=== PATIENT | female | born 1990 | race Two or more races ===

== ENCOUNTER 2020-05-27 23:18 | Inpatient (IN) | payer MEDICAID, SELFPAY ==
[2020-05-27 23:30] VITALS: BP 140/88; PULSE 105; RESP 18; TEMP 37.1; O2SAT 99; BMI 22.6
--- NOTE | 2020-05-27 23:51 | ECG_ITS ---
Test Reason : CHEST PAIN Blood Pressure : / mmHG Vent. Rate : 079 BPM Atrial Rate : 079 BPM P-R Int : 128 ms QRS Dur : 082 ms QT Int : 404 ms P-R-T Axes : 038 042 037 degrees QTc Int : 463 ms Sinus rhythm with marked sinus arrhythmia Otherwise normal ECG When compared with ECG of 01-JAN-2019 01:56, Heart rate has decreased Referred By: Louisa Ruiz Electronically Signed By:JONATHAN STANLEY MD
[2020-05-28 00:35] LABS: MANUAL DIFF FLAG NO
[2020-05-28 00:38] LABS: Basophils Absolute Auto 0.1 X10*3/uL (0.0-0.2); Basophils Percent Auto 0.2 % (0-2); Eosinophils Absolute Auto 0.1 X10*3/uL (0.0-0.4); Eosinophils Percent Auto 0.2 % (0-4); Hemoglobin 10.9 g/dl (12.0-16.0); Imm Gran Abs Auto 0.13 X10*3/uL (0.00-0.03); Imm Gran Pct Auto 0.6 % (0.0-0.4); Lymphocytes Absolute Auto 3.1 X10*3/uL (1.2-4.9); Lymphocytes Percent Auto 15.1 % (20-40); Mean Corpuscular Hemoglobin 27.8 pg (27.0-33.0); Mean Corpuscular Volume 84.2 fL (80-98); Mean Platelet Volume 8.8 fL (9.4-12.3); Monocytes Absolute Auto 0.9 X10*3/uL (0.1-1.2); Monocytes Percent Auto 4.5 % (2-11); Neutrophils Absolute Auto 16.1 X10*3/uL (2.0-8.3); Neutrophils Percent Auto 79.4 % (45-73); Platelet Count 483 X10*3/uL (160-400); Red Blood Count 3.92 X10*6/uL (4.20-5.50); Red Cell Distribution Width 14.1 % (11.0-16.0); White Blood Count 20.3 X10*3/uL (4.8-10.8)
[2020-05-28 00:44] LABS: Prothrombin Time 12.4 SEC (10.8-13.0)
[2020-05-28] MEDS: 0.9 % Sodium Chloride 1,000 ML 999 ML IVCONT ×2 (00:46→02:28)
[2020-05-28] MEDS: Famotidine/PF 20 MG/2 ML VIAL IVPUSH (00:47)
[2020-05-28] MEDS: diphenhydrAMINE HCL 50 MG/ML VIAL IVPUSH (00:47)
[2020-05-28] MEDS: Metoclopramide HCl 10 MG/2 ML VIAL IVPUSH (00:47)
--- NOTE | 2020-05-28 01:01 | PC.NURSE ---
heart rate 160, pt is very anxiouse, not sitting well in the bed. ivf infusing all medications given. ekg being done for chest pain during anxiey moment. provider alfie made aware.
[2020-05-28 01:10] LABS: Alanine Aminotransferase 14 U/L (0-31); Alkaline Phosphatase 132 U/L (39-117); Anion Gap 16 (12-20); Aspartate Amino Transferase 19 U/L (5-31); Bilirubin Direct 0.2 mg/dL (0.0-0.5); Bilirubin Total 0.5 mg/dL (0.0-1.0); Blood Urea Nitrogen 8 mg/dL (9-16); Calcium 9.4 mg/dL (8.4-10.2); Carbon Dioxide 21 mmol/L (22-29); Chloride 105 mmol/L (96-108); Creatinine Clr Calc Pharmacy 133.8; Estimated Glomerular Filt Rate > 60; Glucose Random 134 mg/dL (60-115); Lipase 10 U/L (8-78); Magnesium 1.7 mg/dL (1.6-2.6); Potassium 3.4 mmol/l (3.3-5.1); Sodium 139 mmol/L (135-145); Total Protein 7.3 g/dL (6.5-8.0)
[2020-05-28 01:12] LABS: Troponin-I High Sensitivity < 3.5 ng/L (<3.5-17.0)
[2020-05-28 01:29] LABS: Lactic Acid 1.8 mmol/L (0.5-2.0)
[2020-05-28 01:46] VITALS: BP 127/84; PULSE 93; RESP 18; TEMP 36.9; O2SAT 99
--- NOTE | 2020-05-28 01:54 | ED_ITS ---
HPI - Nausea/Vomiting/Diarrhea General Chief complaint: Nausea/Vomiting/Diarrhea Stated complaint: vomiting/19w Time Seen by Provider: 05/27/20 23:51 Source: patient Mode of arrival: ambulatory Limitations: no limitations History of Present Illness HPI Narrative: 30-year-old female approximately 19 weeks presents with intractable nausea, vomiting, and diarrhea. This patient is well-known to this facility and has presented at least once a week since February for similar circumstances. She is very anxious, needs multiple redirection to answer questions, and states that she did use cocaine and marijuana earlier today. History is limited as she is extraordinarily anxious and not answering questions at this time. MD elicited complaint: nausea, vomiting and abdominal pain Pertinent past history: cyclical vomiting Onset (ago): day(s) Description of vomiting: watery and bilious Description of diarrhea: mucus and watery Associated nausea: Yes Associated abdominal pain: Yes Location of pain: diffuse Radiation: diffuse Pain consistency: constant Severity: severe Pain scale (0-10): 10 Relieving factors: none Related Data Allergies Allergy/AdvReac Type Severity Reaction Status Date / Time No Known Allergies Allergy Unknown UNKNOWN Unverified 05/01/20 16:42 [NO KNOWN ALLERGIES] Review of Systems Review of Systems: Constitutional: No Weight loss, No Fever, No Chills, No Night Sweats, No Fatigue, No Malaise ENT/Mouth: No Hearing loss, No Ear Pain, No Nasal Congestion, No Sinus Pain, No Hoarseness, No sore throat, No Rhinorrhea, No Swallowing Difficulty Eyes: No Eye Pain, No Swelling, No Redness, No Foreign Body, No Discharge, No Vision Changes Cardiovascular: No Chest Pain, No SOB, No Dyspnea on Exertion, No Orthopnea, No Edema, No Palpitations Respiratory: No Cough, No Sputum, No Wheezing, No Smoke Exposure, No Dyspnea Gastrointestinal: Positive Nausea, Positive Vomiting, positive Diarrhea, positive abdominal Pain, No Hematochezia, No Melena Genitourinary: positive 19 weeks, no irregular bleeding, No Dysuria, No Urinary Frequency, No Hematuria, No Urinary Incontinence, No Urgency, No Flank Pain, No Urinary Flow Changes, No Hesitancy Musculoskeletal: No joint pain, No Myalgias, No Joint Swelling Skin: No Skin Lesions, No rash Neuro: No Weakness, No Numbness, No Paresthesias, No Loss of Consciousness, No Dizziness, No Headache Psych: Positive anxiety, positive substance abuse cocaine and marijuana, No Depression, No SI/HI/AH/VH Endocrine: No Polyuria, No Polydipsia, No Temperature Intolerance Gastrointestinal: Gastrointestinal: Reports nausea PMFSH Past Medical History Attestation statement: The following information was validated with the patient. Social History Social History Alcohol intake: former Smoking Status: Never smoker Smoked in Last 30 Days: No Use of substances other than those prescribed or required for medical reasons: Yes Substance Use Type: Marijuana Substance Use Frequency: Daily Last Used Substance: Unknown Advance Directives: No Advance Directives Information Provided: No Physical Exam Vital Signs: Vital Signs: Vital Signs Temp Pulse Resp BP Pulse Ox 05/28/20 04:04 98.4 F 75 18 126/80 05/28/20 01:46 98.4 F 93 18 127/84 99 05/27/20 23:30 98.7 F 105 H 18 140/88 H 99 Body Mass Index 22.6 Appearance: Alert. Oriented X3. moderate distress secondary to anxiety suspected to be cocaine withdrawal Eyes: Pupils equal, round and reactive to light. ENT: Pharynx normal. Neck: Normal inspection. Neck supple. CVS: tachycardic at 105, regular rhythm. Pulses normal. Respiratory: No respiratory distress. Breath sounds normal. Abdomen: Soft and nontender. Skin: Skin warm and dry. Normal skin color. Normal skin turgor. Extremities: No lower extremity edema. Neuro: No motor deficit. No sensory deficit. Course Course Course Narrative: patient is 19 weeks , heart tones at bedside 161, plan of care is resuscitate fluids, check lab values, rule out HELLP syndrome. Patient presents on a weekly basis for nausea, vomiting, diarrhea since early February. No indication of help, urinalysis positive for cocaine and marijuana, vital signs have improved after L of fluid 127/8493 heart rate regular rhythm. Patient continues to dry heave, asking for p.o. fluids. Patient was redirected multiple times, advised that she should not have anything to eat or drink at this time because of her dry heaving. Reevaluation(s) Reevaluation #1: Discussion with hospitalist for intractable nausea and vomiting. Plan is for admission for hyperemesis gravidarum. Time: 02:26 Consultations Consultation #1: Sandip Time: : Consultation #2: Geri Time: : MDM - Nausea/Vomiting/Diarrhea MDM Narrative Medical decision making narrative: Hyperemesis gravidarum, HELLP syndrome, cocaine withdrawal, gastroenteritis, infection, UTI Medical Records Attestation: I reviewed the patient's medical records. Lab Data Attestation: I reviewed the patient's lab results. Result diagrams: 05/28/20 00:30 05/28/20 00:30 Labs: Lab Results 05/28/20 05/28/20 05/28/20 Range/Units 00:30 00:30 00:30 WBC 20.3 H (4.8-10.8) X10*3/uL RBC 3.92 L (4.20-5.50) X10*6/uL Hgb 10.9 L (12.0-16.0) g/dl Hct 33.0 L (37-47) % MCV 84.2 (80-98) fL MCH 27.8 (27.0-33.0) pg MCHC 33.0 (31.0-35.0) g/dl RDW 14.1 (11.0-16.0) % Plt Count 483 H (160-400) X10*3/uL MPV 8.8 L (9.4-12.3) fL Immature Gran % (Auto) 0.6 H (0.0-0.4) % Neut % (Auto) 79.4 H (45-73) % Lymph % (Auto) 15.1 L (20-40) % Graves % (Auto) 4.5 (2-11) % Eos % (Auto) 0.2 (0-4) % Baso % (Auto) 0.2 (0-2) % Lymph # (Auto) 3.1 (1.2-4.9) X10*3/uL Graves # (Auto) 0.9 (0.1-1.2) X10*3/uL Eos # (Auto) 0.1 (0.0-0.4) X10*3/uL Baso # (Auto) 0.1 (0.0-0.2) X10*3/uL Abs Immat Gran (auto) 0.13 H (0.00-0.03) X10*3/uL Absolute Neuts (auto) 16.1 H (2.0-8.3) X10*3/uL Absolute Nucleated RBC 0.000 (0.0-0.012) X10*3/uL Nucleated RBC % (auto) 0.0 (0.0-0.2) /100WBC PT 12.4 (10.8-13.0) SEC INR 1.0 (0.9-1.1) Sodium 139 (135-145) mmol/L Potassium 3.4 (3.3-5.1) mmol/l Chloride 105 (96-108) mmol/L Carbon Dioxide 21 L (22-29) mmol/L Anion Gap 16 (12-20) BUN 8 L (9-16) mg/dL Creatinine 0.62 (0.5-1.4) mg/dL Estim Creat Clear Calc 133.8 Estimated GFR > 60 Random Glucose 134 H (60-115) mg/dL Lactic Acid (0.5-2.0) mmol/L Calcium 9.4 (8.4-10.2) mg/dL Magnesium 1.7 (1.6-2.6) mg/dL Total Bilirubin 0.5 (0.0-1.0) mg/dL Direct Bilirubin 0.2 (0.0-0.5) mg/dL AST 19 (5-31) U/L ALT 14 (0-31) U/L Alkaline Phosphatase 132 H (39-117) U/L Troponin I High Sens (<3.5-17.0) ng/L Total Protein 7.3 (6.5-8.0) g/dL Albumin 4.0 (3.5-5.0) g/dL Lipase 10 (8-78) U/L Urine Color Urine Appearance Urine pH (5.0-8.0) Ur Specific [place] (1.005-1.025) Urine Protein (NEG-TRACE) MG/DL Urine Glucose (UA) (NEG) MG/DL Urine Ketones (NEG) MG/DL Urine Blood (NEG) Urine Nitrite (NEG) Ur Leukocyte Esterase (NEG) Urine RBC (0) /HPF Urine WBC (0-4) /HPF Ur Squamous Epith Cells /LPF Urine Bacteria /LPF Urine Opiates Screen (Not Detect) Ur Barbiturates Screen (Not Detect) Ur Phencyclidine Scrn (Not Detect) Ur Amphetamines Screen (Not Detect) U Benzodiazepines Scrn (Not Detect) Urine Cocaine Screen (Not Detect) U Marijuana (THC) Screen (Not Detect) 05/28/20 05/28/20 05/28/20 Range/Units 00:30 00:30 02:21 WBC (4.8-10.8) X10*3/uL RBC (4.20-5.50) X10*6/uL Hgb (12.0-16.0) g/dl Hct (37-47) % MCV (80-98) fL MCH (27.0-33.0) pg MCHC (31.0-35.0) g/dl RDW (11.0-16.0) % Plt Count (160-400) X10*3/uL MPV (9.4-12.3) fL Immature Gran % (Auto) (0.0-0.4) % Neut % (Auto) (45-73) % Lymph % (Auto) (20-40) % Graves % (Auto) (2-11) % Eos % (Auto) (0-4) % Baso % (Auto) (0-2) % Lymph # (Auto) (1.2-4.9) X10*3/uL Graves # (Auto) (0.1-1.2) X10*3/uL Eos # (Auto) (0.0-0.4) X10*3/uL Baso # (Auto) (0.0-0.2) X10*3/uL Abs Immat Gran (auto) (0.00-0.03) X10*3/uL Absolute Neuts (auto) (2.0-8.3) X10*3/uL Absolute Nucleated RBC (0.0-0.012) X10*3/uL Nucleated RBC % (auto) (0.0-0.2) /100WBC PT (10.8-13.0) SEC INR (0.9-1.1) Sodium (135-145) mmol/L Potassium (3.3-5.1) mmol/l Chloride (96-108) mmol/L Carbon Dioxide (22-29) mmol/L Anion Gap (12-20) BUN (9-16) mg/dL Creatinine (0.5-1.4) mg/dL Estim Creat Clear Calc Estimated GFR Random Glucose (60-115) mg/dL Lactic Acid 1.8 (0.5-2.0) mmol/L Calcium (8.4-10.2) mg/dL Magnesium (1.6-2.6) mg/dL Total Bilirubin (0.0-1.0) mg/dL Direct Bilirubin (0.0-0.5) mg/dL AST (5-31) U/L ALT (0-31) U/L Alkaline Phosphatase (39-117) U/L Troponin I High Sens < 3.5 (<3.5-17.0) ng/L Total Protein (6.5-8.0) g/dL Albumin (3.5-5.0) g/dL Lipase (8-78) U/L Urine Color Urine Appearance Urine pH (5.0-8.0) Ur Specific [place] (1.005-1.025) Urine Protein (NEG-TRACE) MG/DL Urine Glucose (UA) (NEG) MG/DL Urine Ketones (NEG) MG/DL Urine Blood (NEG) Urine Nitrite (NEG) Ur Leukocyte Esterase (NEG) Urine RBC (0) /HPF Urine WBC (0-4) /HPF Ur Squamous Epith Cells /LPF Urine Bacteria /LPF Urine Opiates Screen Not Detected (Not Detect) Ur Barbiturates Screen Not Detected (Not Detect) Ur Phencyclidine Scrn Not Detected (Not Detect) Ur Amphetamines Screen Not Detected (Not Detect) U Benzodiazepines Scrn Not Detected (Not Detect) Urine Cocaine Screen POSITIVE H (Not Detect) U Marijuana (THC) Screen POSITIVE H (Not Detect) 05/28/20 Range/Units 02:21 WBC (4.8-10.8) X10*3/uL RBC (4.20-5.50) X10*6/uL Hgb (12.0-16.0) g/dl Hct (37-47) % MCV (80-98) fL MCH (27.0-33.0) pg MCHC (31.0-35.0) g/dl RDW (11.0-16.0) % Plt Count (160-400) X10*3/uL MPV (9.4-12.3) fL Immature Gran % (Auto) (0.0-0.4) % Neut % (Auto) (45-73) % Lymph % (Auto) (20-40) % Graves % (Auto) (2-11) % Eos % (Auto) (0-4) % Baso % (Auto) (0-2) % Lymph # (Auto) (1.2-4.9) X10*3/uL [place] # (Auto) (0.1-1.2) X10*3/uL Eos # (Auto) (0.0-0.4) X10*3/uL Baso # (Auto) (0.0-0.2) X10*3/uL Abs Immat Gran (auto) (0.00-0.03) X10*3/uL Absolute Neuts (auto) (2.0-8.3) X10*3/uL Absolute Nucleated RBC (0.0-0.012) X10*3/uL Nucleated RBC % (auto) (0.0-0.2) /100WBC PT (10.8-13.0) SEC INR (0.9-1.1) Sodium (135-145) mmol/L Potassium (3.3-5.1) mmol/l Chloride (96-108) mmol/L Carbon Dioxide (22-29) mmol/L Anion Gap (12-20) BUN (9-16) mg/dL Creatinine (0.5-1.4) mg/dL Estim Creat Clear Calc Estimated GFR Random Glucose (60-115) mg/dL Lactic Acid (0.5-2.0) mmol/L Calcium (8.4-10.2) mg/dL Magnesium (1.6-2.6) mg/dL Total Bilirubin (0.0-1.0) mg/dL Direct Bilirubin (0.0-0.5) mg/dL AST (5-31) U/L ALT (0-31) U/L Alkaline Phosphatase (39-117) U/L Troponin I High Sens (<3.5-17.0) ng/L Total Protein (6.5-8.0) g/dL Albumin (3.5-5.0) g/dL Lipase (8-78) U/L Urine Color DARK YELLOW Urine Appearance HAZY Urine pH 6.5 (5.0-8.0) Ur Specific [place] >= 1.030 H (1.005-1.025) Urine Protein 2+ H (NEG-TRACE) MG/DL Urine Glucose (UA) NEG (NEG) MG/DL Urine Ketones 40 (NEG) MG/DL Urine Blood 3+ H (NEG) Urine Nitrite NEG (NEG) Ur Leukocyte Esterase NEG (NEG) Urine RBC 15-29 H (0) /HPF Urine WBC 0-2 (0-4) /HPF Ur Squamous Epith Cells 3+ /LPF Urine Bacteria 1+ /LPF Urine Opiates Screen (Not Detect) Ur Barbiturates Screen (Not Detect) Ur Phencyclidine Scrn (Not Detect) Ur Amphetamines Screen (Not Detect) U Benzodiazepines Scrn (Not Detect) Urine Cocaine Screen (Not Detect) U Marijuana (THC) Screen (Not Detect) ECG Data Attestation: I personally reviewed and interpreted this ECG as follows: ECG interpretation date: 05/28/20 ECG interpretation time: 00:50 Interpretation: Vent. Rate : 079 BPM Atrial Rate : 079 BPM P-R Int : 128 ms QRS Dur : 082 ms QT Int : 404 ms P-R-T Axes : 038 042 037 degrees QTc Int : 463 ms Sinus rhythm with marked sinus arrhythmia Otherwise normal ECG When compared with ECG of 01-JAN-2019 01:56, No significant change was found Discharge Plan Discharge Clinical Impression: Hyperemesis gravidarum Patient Disposition: Admitted As Inpatient
[2020-05-28 02:00] VITALS: BP 127/84
[2020-05-28 02:29] LABS: Glucose Urine UA NEG (NEG); Leukocyte Esterase Urine NEG (NEG); Nitrite Urine NEG (NEG); PH 6.5 (5.0-8.0); Specific Gravity - Urine >= 1.030 (1.005-1.025); Urine Blood 3+ (NEG); Urine Ketones 40 MG/DL (NEG); Urine Protein 2+ MG/DL (NEG-TRACE)
--- NOTE | 2020-05-28 02:29 | PC.NURSE ---
PT AMBULATED BACK FROM BATHROOM. URINE DARK YELLOW. PT HAD STEADY GAIT. PT IS BEING SEEN AT THE BEDSIDE BY HOSPITALIST AND PROVIDER. PT DISCLOSED TO THIS RN THAT SHE SMOKES TOAN AND HAS BEEN CUTTING BACK. PT IS RESTLESS MOANING FOR WATER, TEACHING ON THE NEED TO BE NPO AT THIS TIME BY HOSPITALIST AND PROVIDER EXPLAINED TO THE PT WELL THIS RN. PT HAS STOPPED HER ACTIONS AND IS HAVING ICE CHIPS AT THE PROVIDERS OK.
[2020-05-28 02:30] LABS: Appearance Urine HAZY; Color Urine DARK YELLOW
[2020-05-28 02:41] LABS: WBC Urine 0-2 /HPF (0-4)
[2020-05-28 02:42] LABS: Bacteria Urine 1+ /LPF; Squamous Epithelial Cell Urine 3+ /LPF
[2020-05-28 03:05] LABS: Amphetamine Screen Urine Not Detected (Not Detect); Barbiturates, Urine Not Detected (Not Detect); Benzodiazepines Screen Urine Not Detected (Not Detect); Cannabinoid Screen Urine POSITIVE (Not Detect); Cocaine Screen Urine POSITIVE (Not Detect); Opiate Screen Urine Not Detected (Not Detect); Phencyclidine Screen Urine Not Detected (Not Detect)
[2020-05-28 04:00] VITALS: BP 126/80; PULSE 78; RESP 18; TEMP 36.9; O2SAT 99
[2020-05-28 04:04] VITALS: BP 126/80; PULSE 75; RESP 18; TEMP 36.9
--- NOTE | 2020-05-28 04:09 | PC.NURSE ---
PT WAS SLEEPING ON HER ABD INCONT OF URINE. PT IVF COMPLETED AND PT IS NOW BACK TO BED. PT REQUESTING WARM BLANKETS NO FEVER. PT HAS VOMITING DUE TO TOAN SMOKER.
--- NOTE | 2020-05-28 04:16 | PC.NURSE ---
pt oob to bathroom with steady gait. pt iv was removed with turning. new 20 right hand placed at pt request for the hand location.
[2020-05-28 04:31] VITALS: BP 112/56; PULSE 94; RESP 18
--- NOTE | 2020-05-28 05:06 | PC.NURSE ---
report given to Leilani cm. all the orders have not crossed over to the med surg floor. pt being held in the ed at this time. pt is getting oob and asking for food and drink. no diet order as of yet and pt was npo by provider. pt states she can feel the baby moving. pt tested positive for nhan and cocaine. pt has been asking to take a shower, warm blankets. pt states she take multiple showers a day due to nhan user.
[2020-05-28] MEDS: ondansetron HCL 4 MG/2 ML VIAL IVPUSH (06:28)
[2020-05-28] MEDS: Lactated Ringers 1,000 ML 125 ML IVCONT (06:29)
--- NOTE | 2020-05-28 08:07 | P.HPIM_ITS ---
History of Present Illness Date of Service: 05/28/20 Chief Complaint: Intractable N/V This is a 29-year-old female with w hx of cyclic vomiting syndrome who presents to the hospital with complaints of intractable nausea vomiting.She is 19 wks . she has hx of hyperemesis gravidum in her previous pregnancies and had to terminate a due to the severity in the past. Patient was recently discharged from this hospital on 05/02 . Patient reports on discharge she was feeling better but her symptoms reoccurred on tuesday . She has multiple episodes of vomiting nonbloody. Has some chills with no fever, no headache, no change in vision, no flank pain, reports no urinary frequency and no lower extr emity edema. Reports improvement of her n/v on hot showers 10 point review of system otherwise negative On arrival to the ED patient hemodynamically stable with no significant abnormal vitals tep of 98.7, HR of 93, RR of 18, BP of 126/84 and 99% on RA Labs significant for WBC count of 20.3 and UA positive for blood with no evidence of infection UDS positive for Cocaine and marijuana Past medical history: Denies Surgical history: Family history: No significant history Social history: Comes from home, smokes marijuana daily and still does, denies any drugs, denies alcohol Review of Systems Review of Systems: Yes all other systems are reviewed and are negative [facility] Social History Household Members: Other Housing: Other Alcohol intake: former Smoking Status: Unknown if ever smoked Smoked in Last 30 Days: No Use of substances other than those prescribed or required for medical reasons: Refusing to respond Substance Use Type: Marijuana Substance Use Frequency: Daily Last Used Substance: Unknown Advance Directives: No Advance Directives Information Provided: No Do you have thoughts of harming others: None Do you have a plan to hurt others: No Plan Recently lost weight without trying: No Meds Allergies Allergy/AdvReac Type Severity Reaction Status Date / Time No Known Allergies Allergy Unknown UNKNOWN Unverified 05/01/20 16:42 [NO KNOWN ALLERGIES] Physical Exam Vital Signs and Narrative: Vital Signs: Last Vital Signs Temp 98.4 F 05/28/20 04:04 Pulse 94 05/28/20 04:31 Resp 18 05/28/20 04:31 BP 112/56 L 05/28/20 04:31 Pulse Ox 99 05/28/20 04:00 Body Mass Index 22.6 Const: General: cooperative and no acute distress Orientation/consciousness: patient oriented x3 Eyes: General: appearance normal, both eyes and all related structures Pupils: Equal, round and reactive pupils present Resp: Effort & Inspection: normal respiratory effort and able to speak in complete sentences Auscultation: clear to auscultation bilaterally Cardio: Rate: regular rate Rhythm: regular rhythm GI: Palpation (GI): Soft to palpation Auscultation: normal bowel sounds Skin: General skin exam: no rashes or lesions noted Neuro: General: patient oriented x3 Cranial nerves: Yes Equal, round and reactive pupils present Cognition (Neuro): normal cognition Extrem: General: Yes normal to inspection and Yes no pedal edema Results Labs Labs: Laboratory Tests 05/28/20 05/28/20 05/28/20 00:30 00:30 00:30 WBC 20.3 H RBC 3.92 L Hgb 10.9 L Hct 33.0 L MCV 84.2 MCH 27.8 MCHC 33.0 RDW 14.1 Plt Count 483 H MPV 8.8 L Immature Gran % (Auto) 0.6 H Neut % (Auto) 79.4 H Lymph % (Auto) 15.1 L [place] % (Auto) 4.5 Eos % (Auto) 0.2 Baso % (Auto) 0.2 Lymph # (Auto) 3.1 [place] # (Auto) 0.9 Eos # (Auto) 0.1 Baso # (Auto) 0.1 Abs Immat Gran (auto) 0.13 H Absolute Neuts (auto) 16.1 H Absolute Nucleated RBC 0.000 Nucleated RBC % (auto) 0.0 PT 12.4 INR 1.0 Sodium 139 Potassium 3.4 Chloride 105 Carbon Dioxide 21 L Anion Gap 16 BUN 8 L Creatinine 0.62 Estim Creat Clear Calc 133.8 Estimated GFR > 60 Random Glucose 134 H Lactic Acid Calcium 9.4 Magnesium 1.7 Total Bilirubin 0.5 Direct Bilirubin 0.2 AST 19 ALT 14 Alkaline Phosphatase 132 H Troponin I High Sens Total Protein 7.3 Albumin 4.0 Lipase 10 Urine Color Urine Appearance Urine pH Ur Specific [place] Urine Protein Urine Glucose (UA) Urine Ketones Urine Blood Urine Nitrite Ur Leukocyte Esterase Urine RBC Urine WBC Ur Squamous Epith Cells Urine Bacteria Urine Opiates Screen Ur Barbiturates Screen Ur Phencyclidine Scrn Ur Amphetamines Screen U Benzodiazepines Scrn Urine Cocaine Screen U Marijuana (THC) Screen 05/28/20 05/28/20 05/28/20 00:30 00:30 02:21 WBC RBC Hgb Hct MCV MCH MCHC RDW Plt Count MPV Immature Gran % (Auto) Neut % (Auto) Lymph % (Auto) [place] % (Auto) Eos % (Auto) Baso % (Auto) Lymph # (Auto) [place] # (Auto) Eos # (Auto) Baso # (Auto) Abs Immat Gran (auto) Absolute Neuts (auto) Absolute Nucleated RBC Nucleated RBC % (auto) PT INR Sodium Potassium Chloride Carbon Dioxide Anion Gap BUN Creatinine Estim Creat Clear Calc Estimated GFR Random Glucose Lactic Acid 1.8 Calcium Magnesium Total Bilirubin Direct Bilirubin AST ALT Alkaline Phosphatase Troponin I High Sens < 3.5 Total Protein Albumin Lipase Urine Color Urine Appearance Urine pH Ur Specific [place] Urine Protein Urine Glucose (UA) Urine Ketones Urine Blood Urine Nitrite Ur Leukocyte Esterase Urine RBC Urine WBC Ur Squamous Epith Cells Urine Bacteria Urine Opiates Screen Not Detected Ur Barbiturates Screen Not Detected Ur Phencyclidine Scrn Not Detected Ur Amphetamines Screen Not Detected U Benzodiazepines Scrn Not Detected Urine Cocaine Screen POSITIVE H U Marijuana (THC) Screen POSITIVE H 05/28/20 02:21 WBC RBC Hgb Hct MCV MCH MCHC RDW Plt Count MPV Immature Gran % (Auto) Neut % (Auto) Lymph % (Auto) [place] % (Auto) Eos % (Auto) Baso % (Auto) Lymph # (Auto) [place] # (Auto) Eos # (Auto) Baso # (Auto) Abs Immat Gran (auto) Absolute Neuts (auto) Absolute Nucleated RBC Nucleated RBC % (auto) PT INR Sodium Potassium Chloride Carbon Dioxide Anion Gap BUN Creatinine Estim Creat Clear Calc Estimated GFR Random Glucose Lactic Acid Calcium Magnesium Total Bilirubin Direct Bilirubin AST ALT Alkaline Phosphatase Troponin I High Sens Total Protein Albumin Lipase Urine Color DARK YELLOW Urine Appearance HAZY Urine pH 6.5 Ur Specific [place] >= 1.030 H Urine Protein 2+ H Urine Glucose (UA) NEG Urine Ketones 40 Urine Blood 3+ H Urine Nitrite NEG Ur Leukocyte Esterase NEG Urine RBC 15-29 H Urine WBC 0-2 Ur Squamous Epith Cells 3+ Urine Bacteria 1+ Urine Opiates Screen Ur Barbiturates Screen Ur Phencyclidine Scrn Ur Amphetamines Screen U Benzodiazepines Scrn Urine Cocaine Screen U Marijuana (THC) Screen Assessment and Plan (1) Cyclic vomiting syndrome: Status: Acute (2) : Status: Acute (3) Hyperemesis gravidarum: Status: Acute 30 yo f 19 wk who presents with intractable N?V # Intractable n/v - most likley multifactorial due to marijuana use as well as hyperemesis gravidum Plan: - zofran, compazine prn - lauren fluis # - Ob?[employer] SCIENT[employer]EARCH informed of pt by ED but will hold off on consulting them for now as pt does not appea to have any complications DVT ppx : heparin DOS: 05/28/2020
[2020-05-28] MEDS: Metoclopramide HCl 10 MG/2 ML VIAL 5 MG IVPUSH (10:45)
--- NOTE | 2020-05-28 11:30 | MHC.CM.PN ---
Addendum entered by Zakia Proctor 05/28/20 11:33: PATIENT HAS OPEN DCF CASE. NARCOTICS AGENT FOR DCF IS SHER ALTAMIRANO MANAGER CONTENT IS NOBLE WAGNER. [facility] IS AWARE THAT PLAN IS FOR PATIENT TO RETURN HOME THIS AFTERNOON. [facility] WILL CONTACT NARCOTICS AGENT TO DO A WELLNESS CHECK ON CHILDREN. PER DCF REPORTS, PATIENT LIVES WITH HER MOTHER AND HAS 4 CHILDREN IN THE HOME (AGES 8, 11, 15, AND 17). Original Note: THIS TAPPET ADJUSTER CONTACTED ROSA HALL ([facility] [phone])
--- NOTE | 2020-05-28 11:47 | P.DS_ITS ---
DS: Providers Provider Date of admission: 05/28/20 04:00 Primary care physician: [facility] DS: Diagnosis Discharge Diagnosis (1) Cyclic vomiting syndrome: Status: Acute (2) : Status: Acute (3) Hyperemesis gravidarum: Status: Acute DS: Summary Hospital Course Hospital Course: Patient was admitted earlier today with hyperemesis likely related to canabis use and possibly related, unfortunately not her first episode and continues to be doing this. She was observed, hydrated and given antiemetic and now feels better and wants to go and sign out against advise. Risk benefit and risks of getting worse and endangering , and even explained. She is of clear mind, alert oriented to self place and time and voice understanding and still leaving AMA. I have advised her to avoid substance use and to follow up with her vending machine servicer for proper care Time Spent with Patient Time attestation: Total time spent providing and/or coordinating discharge services: Physical Exam Vital Signs: Vital Signs: Vital Signs Temp Pulse Resp BP Pulse Ox 05/28/20 04:31 94 18 112/56 L 05/28/20 04:04 98.4 F 75 18 126/80 05/28/20 04:00 98.4 F 78 18 126/80 99 05/28/20 02:00 127/84 05/28/20 01:46 98.4 F 93 18 127/84 99 05/27/20 23:30 98.7 F 105 H 18 140/88 H 99 Body Mass Index 22.6 Constitutional Awake and Alert, No apparent distress Neck Supple, No lymphadenopathy Cardiovascular RRR, No M/R/G, S1 S2, No S3 S4, No pedal edema Respiratory Lungs clear, No respiratory distress Gastrointestinal Non tender, Non-distended Skin No rash Neurological Alert & oriented x3 Psychological Appropriate affect DS: Data Data Completed and Pending Labs on day of discharge: Labs from last 24 hours 05/28/20 05/28/20 05/28/20 02:21 02:21 00:30 WBC RBC Hgb Hct MCV MCH MCHC RDW Plt Count MPV Immature Gran % (Auto) Neut % (Auto) Lymph % (Auto) [place] % (Auto) Eos % (Auto) Baso % (Auto) Lymph # (Auto) [place] # (Auto) Eos # (Auto) Baso # (Auto) Abs Immat Gran (auto) Absolute Neuts (auto) Absolute Nucleated RBC Nucleated RBC % (auto) PT INR Sodium Potassium Chloride Carbon Dioxide Anion Gap BUN Creatinine Estim Creat Clear Calc Estimated GFR Random Glucose Lactic Acid Calcium Magnesium Total Bilirubin Direct Bilirubin AST ALT Alkaline Phosphatase Troponin I High Sens < 3.5 Total Protein Albumin Lipase Urine Color DARK YELLOW Urine Appearance HAZY Urine pH 6.5 Ur Specific [place] >= 1.030 H Urine Protein 2+ H Urine Glucose (UA) NEG Urine Ketones 40 Urine Blood 3+ H Urine Nitrite NEG Ur Leukocyte Esterase NEG Urine RBC 15-29 H Urine WBC 0-2 Ur Squamous Epith Cells 3+ Urine Bacteria 1+ Urine Opiates Screen Not Detected Ur Barbiturates Screen Not Detected Ur Phencyclidine Scrn Not Detected Ur Amphetamines Screen Not Detected U Benzodiazepines Scrn Not Detected Urine Cocaine Screen POSITIVE H U Marijuana (THC) Screen POSITIVE H 05/28/20 05/28/20 05/28/20 00:30 00:30 00:30 WBC RBC Hgb Hct MCV MCH MCHC RDW Plt Count MPV Immature Gran % (Auto) Neut % (Auto) Lymph % (Auto) [place] % (Auto) Eos % (Auto) Baso % (Auto) Lymph # (Auto) [place] # (Auto) Eos # (Auto) Baso # (Auto) Abs Immat Gran (auto) Absolute Neuts (auto) Absolute Nucleated RBC Nucleated RBC % (auto) PT 12.4 INR 1.0 Sodium 139 Potassium 3.4 Chloride 105 Carbon Dioxide 21 L Anion Gap 16 BUN 8 L Creatinine 0.62 Estim Creat Clear Calc 133.8 Estimated GFR > 60 Random Glucose 134 H Lactic Acid 1.8 Calcium 9.4 Magnesium 1.7 Total Bilirubin 0.5 Direct Bilirubin 0.2 AST 19 ALT 14 Alkaline Phosphatase 132 H Troponin I High Sens Total Protein 7.3 Albumin 4.0 Lipase 10 Urine Color Urine Appearance Urine pH Ur Specific [place] Urine Protein Urine Glucose (UA) Urine Ketones Urine Blood Urine Nitrite Ur Leukocyte Esterase Urine RBC Urine WBC Ur Squamous Epith Cells Urine Bacteria Urine Opiates Screen Ur Barbiturates Screen Ur Phencyclidine Scrn Ur Amphetamines Screen U Benzodiazepines Scrn Urine Cocaine Screen U Marijuana (THC) Screen 05/28/20 00:30 WBC 20.3 H RBC 3.92 L Hgb 10.9 L Hct 33.0 L MCV 84.2 MCH 27.8 MCHC 33.0 RDW 14.1 Plt Count 483 H MPV 8.8 L Immature Gran % (Auto) 0.6 H Neut % (Auto) 79.4 H Lymph % (Auto) 15.1 L [place] % (Auto) 4.5 Eos % (Auto) 0.2 Baso % (Auto) 0.2 Lymph # (Auto) 3.1 [place] # (Auto) 0.9 Eos # (Auto) 0.1 Baso # (Auto) 0.1 Abs Immat Gran (auto) 0.13 H Absolute Neuts (auto) 16.1 H Absolute Nucleated RBC 0.000 Nucleated RBC % (auto) 0.0 PT INR Sodium Potassium Chloride Carbon Dioxide Anion Gap BUN Creatinine Estim Creat Clear Calc Estimated GFR Random Glucose Lactic Acid Calcium Magnesium Total Bilirubin Direct Bilirubin AST ALT Alkaline Phosphatase Troponin I High Sens Total Protein Albumin Lipase Urine Color Urine Appearance Urine pH Ur Specific [place] Urine Protein Urine Glucose (UA) Urine Ketones Urine Blood Urine Nitrite Ur Leukocyte Esterase Urine RBC Urine WBC Ur Squamous Epith Cells Urine Bacteria Urine Opiates Screen Ur Barbiturates Screen Ur Phencyclidine Scrn Ur Amphetamines Screen U Benzodiazepines Scrn Urine Cocaine Screen U Marijuana (THC) Screen Discharge Plan Discharge Patient Disposition: Left Against Medical Advice Referrals: [facility] [Primary Care Provider] - Discharge Orders: Discharge Order (Routine); Ordered 05/28/20 Ordered By: Juan David Logan Diet: advance to your usual diet Activity on Discharge: As tolerated Care Plan Goals: See apropriate pre care Health Concerns: substance abuse, cyclical vomitting Plan of Treatment: Avoid substance, follow up with your PRODUCT GRADER for apprirate pre jewels care
--- NOTE | 2020-05-28 11:48 | MHC.CM.PN ---
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[employer] RECORD REVIEWED ALONG WITH CASE DISCUSSED WITH STAFF NURSE AND CO-WORKER -INCIDENT RESPONSE SPECIALIST MET WITH PATIENT SHE REPORTED TO THIS BICYCLE I ASSEMBLER THAT SHE LIVES ALONE AND HER CHILDREN LIVE ELSEWHERE I ASKED HER IF AFTEDR THE LAST ADMISSION SHE HAD HERE DID SHE DFOLLOW UP WITH HER OB AT [facility] SHE REPORTED SHE DID AND THAT SHE HAD A ULTRA SOUND LAST WEEK AND SHE IS HAVING A LITTLE GIRL , SHE [id number] THAT SHE HAS NO SERVCIES IN THE HOME SHE ADMITTS TO TAKING MAIJUANA AND STRONGLY DENIES TAKING ANY COCAINE (WHICH BOTH SHOWED UPO ON DRUG TEST WITH THIS ADMISSION) SHE STARTED TO HAVE WHAT APPEQRED TO BE A ANXIETY ATTACK AND SHE REPORTED THAT SHE WAS HAVBING ONE AND BEGGED ME TO STAY WITHHER , SHECALLED HER MOM AND REQUESTED SHE COME AND SEE HERE , AFTER THE CONVERSATION WITH HER MOTHER SHE SEMMED TO HAVE CALMED DOWN. SPOKE MORE WITH BURGLARY INVESTIGATOR , SHE CHECKED WITH PROTECTIVE SERVICES AND REPORTED THAT BILLY HAS A OPEN DSS CASE DISCHARGE PLAN HOME WITH NO SERVICES PATIENT INSTRUXTED TO CALL PCP AND OB FOR FOLLOW UP APPOINTMENT PATIENT IS ANTICIPATED TO BE D/C ;LATTER TODAY OPEN PROTECTIVE CASE WITH DDS FOR CASE MANGEMENT S,W, NOTE PLEASE SEE NOTES FOR CONFIRMATION OF PHONE CALL TO PROTECTIVE SERVCIES
--- NOTE | 2020-05-28 12:13 | PC.NURSE ---
patient states that she feels better and intends to leave. dr novak. patient states that her ride is here now. risks of leaving were reviewed and patient states she understands those risks. she leaves with family
--- NOTE | 2020-05-28 12:57 | MHC.CM.PN ---
nurse egg caser note informed by staff nurse that patient left against medical advice4
== END 2020-05-28 12:55 | disposition left against medical advice (07) | DRG 566 ==
LOC: HO.ED 05-28 03:58 → HO.S3 05-28 04:38
PROVIDERS: Nurse Practitioner Family; Admitting Provider Internal Medicine; Emergency Provider Internal Medicine; Visit Provider Internal Medicine
DX: O21.0 Mild hyperemesis gravidarum (principal); O99.322 Drug use complicating pregnancy, second trimester; F14.90 Cocaine use, unspecified, uncomplicated; F12.90 Cannabis use, unspecified, uncomplicated; Z3A.19 19 weeks gestation of pregnancy
CPT/HCPCS: 36415; 80048; 80076; 80307; 81001; 83605; 83690; 83735; 84484; 85025; 85610; 87040; 93005; 96361; 96374; 96375; 99218; 99285; J1200; J2405; J2765

== ENCOUNTER 2020-07-09 11:00 | Emergency (ER) | payer MEDICAID, SELFPAY ==
[2020-07-09 11:07] VITALS: PULSE 120
[2020-07-09 11:08] VITALS: BP 130/72; BP 132/86; PULSE 118; PULSE 120; RESP 18; TEMP 36.7; O2SAT 98; O2SAT 99; BMI 37.7
[2020-07-09] MEDS: ondansetron HCL 4 MG/2 ML VIAL IVPUSH (11:21)
[2020-07-09] MEDS: LORazepam 2 MG/ML VIAL 1 MG IVPUSH (11:21)
[2020-07-09] MEDS: 0.9 % Sodium Chloride 1,000 ML 999 ML IVCONT ×2 (11:22→13:38)
--- NOTE | 2020-07-09 11:34 | ED_ITS ---
HPI - Nausea/Vomiting/Diarrhea General Chief complaint: Abdominal Pain Stated complaint: 6 mos preg, abd pain Time Seen by Provider: 07/09/20 11:06 Source: patient Mode of arrival: EMS Limitations: no limitations History of Present Illness HPI Narrative: patient is 6 months uses cocaine and marijuana comes here with increased anxiety and upper abdominal pain with vomiting since 04:00 no vaginal bleeding or discharge patient very anxious in the ER crying. Patient a chronic leukocytosis had a ultrasound done in 04/03 negative for gallstones asking for medication for anxiety MD elicited complaint: nausea, vomiting and abdominal pain Related Data Previous Rx's Medication Instructions Recorded hydroxyzine HCl 25 mg PO Q6-8H PRN #14 tab 07/09/20 Allergies Allergy/AdvReac Type Severity Reaction Status Date / Time No Known Allergies Allergy Unknown UNKNOWN Unverified 05/01/20 16:42 [NO KNOWN ALLERGIES] Review of Systems Review of Systems: REVIEW OF SYSTEMS: Pertinent positives and negatives are stated above in the history. GEN: no fevers, chills, fatigue HEENT: no nasal congestion, sore throat, ear pain NEURO: no headache, dizziness, focal weakness PULM: no cough, shortness of breath CV: no chest pain, palpitations, LE edema ABD: no diarrhea : no dysuria, urgency, frequency SKIN: no rash ROS otherwise negative x 10 PMFSH Social History Social History Household Members: Other Housing: Other Alcohol intake: never Smoking Status: Never smoker Use of substances other than those prescribed or required for medical reasons: Yes Substance Use Type: Marijuana Advance Directives: No Advance Directives Information Provided: Yes service: No Current occupational status: unemployed Physical Exam Vital Signs: Vital Signs: Last Vital Signs Temp 98.0 F 07/09/20 11:08 Pulse 98 07/09/20 14:00 Resp 18 07/09/20 14:00 BP 165/88 H 07/09/20 14:00 Pulse Ox 99 07/09/20 14:00 Body Mass Index 37.7 Appearance: Alert. Oriented X3. anxious vomiting Eyes: Pupils equal, round and reactive to light. ENT: Pharynx normal. oral mucosa moist Neck: Normal inspection. Neck supple. CVS: Normal heart rate and rhythm. Pulses normal. Respiratory: No respiratory distress. Breath sounds normal. Abdomen: Soft and gravid uterus mild tenderness and epigastric area no rebound tenderness no guarding bowel sounds are present no CVA tenderness Skin: Skin warm and dry. Normal skin color. Normal skin turgor. Extremities: No lower extremity edema. Good range of movement Neuro: Oriented X 3. No motor deficit. No sensory deficit. MDM - Nausea/Vomiting/Diarrhea MDM Narrative Medical decision making narrative: patient with history of substance abuse with recurrent vomiting 6 months been to the hospital several times for that is related problems at previous ultrasound negative patient received 2 L of IV fluids started feeling better but asking for more medication and walked out from the ER Medical Records Attestation: I reviewed the patient's medical records. Lab Data Attestation: I reviewed the patient's lab results. Result diagrams: 07/09/20 11:07/09/20 11: Labs: Lab Results 07/09/20 07/09/20 07/09/20 Range/Units 11:28 11:28 11:28 WBC 21.4 H (4.8-10.8) X10*3/uL RBC 3.78 L (4.20-5.50) X10*6/uL Hgb 10.5 L (12.0-16.0) g/dl Hct 31.3 L (37-47) % MCV 82.8 (80-98) fL MCH 27.8 (27.0-33.0) pg MCHC 33.5 (31.0-35.0) g/dl RDW 13.2 (11.0-16.0) % Plt Count 471 H (160-400) X10*3/uL MPV 8.6 L (9.4-12.3) fL Immature Gran % (Auto) 0.7 H (0.0-0.4) % Neut % (Auto) 83.0 H (45-73) % Lymph % (Auto) 11.9 L (20-40) % [place] % (Auto) 3.9 (2-11) % Eos % (Auto) 0.3 (0-4) % Baso % (Auto) 0.2 (0-2) % Lymph # (Auto) 2.5 (1.2-4.9) X10*3/uL [place] # (Auto) 0.8 (0.1-1.2) X10*3/uL Eos # (Auto) 0.1 (0.0-0.4) X10*3/uL Baso # (Auto) 0.0 (0.0-0.2) X10*3/uL Abs Immat Gran (auto) 0.16 H (0.00-0.03) X10*3/uL Absolute Neuts (auto) 17.7 H (2.0-8.3) X10*3/uL Absolute Nucleated RBC 0.000 (0.0-0.012) X10*3/uL Nucleated RBC % (auto) 0.0 (0.0-0.2) /100WBC Sodium 139 (135-145) mmol/L Potassium 4.0 (3.3-5.1) mmol/l Chloride 106 (96-108) mmol/L Carbon Dioxide 22 (22-29) mmol/L Anion Gap 15 (12-20) BUN 6 L (9-16) mg/dL Creatinine 0.60 (0.5-1.4) mg/dL Estim Creat Clear Calc 151.6 Estimated GFR > 60 Random Glucose 125 H (60-115) mg/dL Calcium 9.0 (8.4-10.2) mg/dL Total Bilirubin < 0.2 (0.0-1.0) mg/dL Direct Bilirubin < 0.2 (0.0-0.5) mg/dL AST 18 (5-31) U/L ALT 16 (0-31) U/L Alkaline Phosphatase 172 H D (39-117) U/L Total Protein 7.3 (6.5-8.0) g/dL Albumin 3.6 (3.5-5.0) g/dL Lipase 13 (8-78) U/L Urine Color Urine Appearance Urine pH (5.0-8.0) Ur Specific [place] (1.005-1.025) Urine Protein (NEG-TRACE) MG/DL Urine Glucose (UA) (NEG) MG/DL Urine Ketones (NEG) MG/DL Urine Blood (NEG) Urine Nitrite (NEG) Ur Leukocyte Esterase (NEG) Urine RBC (0) /HPF Urine WBC (0-4) /HPF Ur Squamous Epith Cells /LPF Urine Bacteria /LPF Urine Mucus /LPF //20 Range/Units 13:39 WBC (4.8-10.8) X10*3/uL RBC (4.20-5.50) X10*6/uL Hgb (12.0-16.0) g/dl Hct (37-47) % MCV (80-98) fL MCH (27.0-33.0) pg MCHC (31.0-35.0) g/dl RDW (11.0-16.0) % Plt Count (160-400) X10*3/uL MPV (9.4-12.3) fL Immature Gran % (Auto) (0.0-0.4) % Neut % (Auto) (45-73) % Lymph % (Auto) (20-40) % [place] % (Auto) (2-11) % Eos % (Auto) (0-4) % Baso % (Auto) (0-2) % Lymph # (Auto) (1.2-4.9) X10*3/uL [place] # (Auto) (0.1-1.2) X10*3/uL Eos # (Auto) (0.0-0.4) X10*3/uL Baso # (Auto) (0.0-0.2) X10*3/uL Abs Immat Gran (auto) (0.00-0.03) X10*3/uL Absolute Neuts (auto) (2.0-8.3) X10*3/uL Absolute Nucleated RBC (0.0-0.012) X10*3/uL Nucleated RBC % (auto) (0.0-0.2) /100WBC Sodium (135-145) mmol/L Potassium (3.3-5.1) mmol/l Chloride (96-108) mmol/L Carbon Dioxide (22-29) mmol/L Anion Gap (12-20) BUN (9-16) mg/dL Creatinine (0.5-1.4) mg/dL Estim Creat Clear Calc Estimated GFR Random Glucose (60-115) mg/dL Calcium (8.4-10.2) mg/dL Total Bilirubin (0.0-1.0) mg/dL Direct Bilirubin (0.0-0.5) mg/dL AST (5-31) U/L ALT (0-31) U/L Alkaline Phosphatase (39-117) U/L Total Protein (6.5-8.0) g/dL Albumin (3.5-5.0) g/dL Lipase (8-78) U/L Urine Color YELLOW Urine Appearance HAZY Urine pH 6.5 (5.0-8.0) Ur Specific [place] >= 1.030 H (1.005-1.025) Urine Protein 2+ H (NEG-TRACE) MG/DL Urine Glucose (UA) NEG (NEG) MG/DL Urine Ketones 40 (NEG) MG/DL Urine Blood 3+ H (NEG) Urine Nitrite NEG (NEG) Ur Leukocyte Esterase NEG (NEG) Urine RBC 15-29 H (0) /HPF Urine WBC 0-2 (0-4) /HPF Ur Squamous Epith Cells 2+ /LPF Urine Bacteria 1+ /LPF Urine Mucus 2+ /LPF Discharge Plan Discharge Clinical Impression: Cyclic vomiting syndrome, Cannabis abuse with cannabis-induced anxiety disorder Patient Disposition: Home, Self-Care Instructions: Hyperemesis Gravidarum (ED), Cannabis Abuse (ED) Additional Instructions: stop using cannabis. Take continue taking medication as prescribed Prescriptions: New hydroxyzine HCl 25 mg tablet 25 mg PO Q6-8H PRN (Reason: nausea and vomiting) Qty: 14 RF: 0 Interventions: ED Discharge Assessment Last Done: 07/09/20 15:10 Discharge Date/Time: 07/09/20 15:10
--- NOTE | 2020-07-09 11:36 | PC.NURSE ---
Patient arrives via EMS reporting abdominal pain beginning at 4AM with nausea and vomiting. Patient is 6 months . Normal . Reports chronic kidney infections. Patient having a panic attack at this time. Increased respirations, sobbing, and unable to sit still. Calmed patient down and walked through breathing techniques. When not crying, respirations regular and even. IV established by EMS. Dr. Hernandez evaluated patient. IV established and labs drawn. Hung NS 1L and medicated with Zofran and Ativan. Patient tolerated well. Shortly after patient fell asleep.
[2020-07-09 11:38] LABS: Basophils Percent Auto 0.2 % (0-2); Eosinophils Absolute Auto 0.1 X10*3/uL (0.0-0.4); Eosinophils Percent Auto 0.3 % (0-4); Hematocrit 31.3 % (37-47); Hemoglobin 10.5 g/dl (12.0-16.0); Imm Gran Abs Auto 0.16 X10*3/uL (0.00-0.03); Imm Gran Pct Auto 0.7 % (0.0-0.4); Lymphocytes Absolute Auto 2.5 X10*3/uL (1.2-4.9); Lymphocytes Percent Auto 11.9 % (20-40); MANUAL DIFF FLAG NO; Mean Corpuscular HGB Conc 33.5 g/dl (31.0-35.0); Mean Corpuscular Hemoglobin 27.8 pg (27.0-33.0); Mean Corpuscular Volume 82.8 fL (80-98); Mean Platelet Volume 8.6 fL (9.4-12.3); Monocytes Absolute Auto 0.8 X10*3/uL (0.1-1.2); Monocytes Percent Auto 3.9 % (2-11); Neutrophils Absolute Auto 17.7 X10*3/uL (2.0-8.3); Platelet Count 471 X10*3/uL (160-400); Red Blood Count 3.78 X10*6/uL (4.20-5.50); Red Cell Distribution Width 13.2 % (11.0-16.0); White Blood Count 21.4 X10*3/uL (4.8-10.8)
[2020-07-09 12:00] VITALS: BP 139/78; PULSE 116; RESP 18; O2SAT 99
[2020-07-09 12:01] LABS: Anion Gap 15 (12-20); Blood Urea Nitrogen 6 mg/dL (9-16); Carbon Dioxide 22 mmol/L (22-29); Chloride 106 mmol/L (96-108); Creatinine Clr Calc Pharmacy 151.6; Estimated Glomerular Filt Rate > 60; Glucose Random 125 mg/dL (60-115); Sodium 139 mmol/L (135-145)
[2020-07-09 12:12] LABS: Alanine Aminotransferase 16 U/L (0-31); Albumin Level 3.6 g/dL (3.5-5.0); Alkaline Phosphatase 172 U/L (39-117); Aspartate Amino Transferase 18 U/L (5-31); Bilirubin Direct < 0.2 mg/dL (0.0-0.5); Bilirubin Total < 0.2 mg/dL (0.0-1.0); Lipase 13 U/L (8-78); Total Protein 7.3 g/dL (6.5-8.0)
--- NOTE | 2020-07-09 12:36 | PC.NURSE ---
Patient asleep off and on, when patient awakes she begins to cry and ask for help. Patient appears comfortable but with anxiety. Respirations regular and even. Skin PWD.
--- NOTE | 2020-07-09 13:36 | PC.NURSE ---
Patient continues to vomit bile. Dr. Hernandez made aware. Pasha Otero and 2nd NS 1L. Patient fell back asleep at this time. No distress noted. Awaiting improvement.
[2020-07-09] MEDS: Metoclopramide HCl 10 MG/2 ML VIAL IVPUSH (13:39)
[2020-07-09 13:47] LABS: Glucose Urine UA NEG (NEG); Leukocyte Esterase Urine NEG (NEG); Nitrite Urine NEG (NEG); PH 6.5 (5.0-8.0); Specific Gravity - Urine >= 1.030 (1.005-1.025); Urine Blood 3+ (NEG); Urine Ketones 40 MG/DL (NEG); Urine Protein 2+ MG/DL (NEG-TRACE)
[2020-07-09 13:48] LABS: Appearance Urine HAZY; Color Urine YELLOW
[2020-07-09 13:58] LABS: Bacteria Urine 1+ /LPF; Mucus Urine 2+ /LPF; Squamous Epithelial Cell Urine 2+ /LPF; WBC Urine 0-2 /HPF (0-4)
[2020-07-09 14:00] VITALS: BP 165/88; PULSE 98; RESP 18; O2SAT 99
--- NOTE | 2020-07-09 15:05 | PC.NURSE ---
Patient got upset she was not receiving more Ativan. Ripped IV out and Asked for discharge. patient then walked out of this ED wrapped in a blanket. Refusing to wait for discharge paperwork.
== END 2020-07-09 15:10 | disposition home or self-care (01) ==
PROVIDERS: Emergency Provider Internal Medicine
DX: O99.323 Drug use complicating pregnancy, third trimester (principal); F12.180 Cannabis abuse with cannabis-induced anxiety disorder; R11.15 Cyclical vomiting syndrome unrelated to migraine; Z3A.28 28 weeks gestation of pregnancy
CPT/HCPCS: 36415; 80048; 80076; 81001; 83690; 85025; 96361; 96374; 96375; 96376; 99284; J2060; J2405; J2765

== ENCOUNTER 2020-07-15 20:08 | Emergency (ER) | payer MEDICAID, SELFPAY ==
[2020-07-15 20:21] VITALS: BP 139/76; PULSE 110; RESP 20; TEMP 36.8; O2SAT 98; BMI 37.7
[2020-07-15 20:43] LABS: MANUAL DIFF FLAG NO
[2020-07-15] MEDS: ondansetron HCL 4 MG/2 ML VIAL IVPUSH (20:44)
[2020-07-15 20:48] VITALS: BP 139/76; PULSE 98; RESP 21; O2SAT 99
[2020-07-15 20:50] LABS: Basophils Percent Auto 0.2 % (0-2); Eosinophils Percent Auto 0.1 % (0-4); Hematocrit 30.4 % (37-47); Hemoglobin 10.3 g/dl (12.0-16.0); Imm Gran Pct Auto 0.5 % (0.0-0.4); Lymphocytes Absolute Auto 1.8 X10*3/uL (1.2-4.9); Lymphocytes Percent Auto 9.8 % (20-40); Mean Corpuscular HGB Conc 33.9 g/dl (31.0-35.0); Mean Corpuscular Hemoglobin 27.9 pg (27.0-33.0); Mean Corpuscular Volume 82.4 fL (80-98); Mean Platelet Volume 8.6 fL (9.4-12.3); Monocytes Absolute Auto 0.6 X10*3/uL (0.1-1.2); Monocytes Percent Auto 3.4 % (2-11); Neutrophils Absolute Auto 15.8 X10*3/uL (2.0-8.3); Platelet Count 369 X10*3/uL (160-400); Red Blood Count 3.69 X10*6/uL (4.20-5.50); Red Cell Distribution Width 13.3 % (11.0-16.0); White Blood Count 18.4 X10*3/uL (4.8-10.8)
[2020-07-15 21:20] LABS: Alanine Aminotransferase 286 U/L (0-31); Albumin Level 3.4 g/dL (3.5-5.0); Alkaline Phosphatase 162 U/L (39-117); Anion Gap 13 (12-20); Aspartate Amino Transferase 133 U/L (5-31); Bilirubin Total 0.4 mg/dL (0.0-1.0); Blood Urea Nitrogen 5 mg/dL (9-16); Calcium 8.4 mg/dL (8.4-10.2); Carbon Dioxide 26 mmol/L (22-29); Chloride 102 mmol/L (96-108); Creatinine Clr Calc Pharmacy 178.4; Estimated Glomerular Filt Rate > 60; Glucose Random 109 mg/dL (60-115); Potassium 3.2 mmol/l (3.3-5.1); Sodium 138 mmol/L (135-145); Total Protein 6.2 g/dL (6.5-8.0)
--- NOTE | 2020-07-15 21:25 | US_ITS ---
EXAMINATION: US ABDOMEN LIMITED CLINICAL INFORMATION: Right upper quadrant pain. COMPARISON: 04/30/2020 TECHNIQUE: Real-time imaging of the right upper quadrant abdominal viscera. FINDINGS: PANCREAS: Normal. LIVER: The liver is normal in size. The liver contour is normal. Parenchymal echogenicity is normal. No focal hepatic lesion. There is no intrahepatic biliary duct dilatation seen. GALLBLADDER: The gallbladder is physiologically distended without evidence of stones, polyps, wall thickening or pericholecystic fluid. Some echogenic bile/sludge may be present within the gallbladder to that seen previously. COMMON BILE DUCT: Normal in caliber measuring 0.2 cm in diameter. RIGHT KIDNEY: Normal. No hydronephrosis. No renal calculi or focal parenchymal lesions. The kidney measures 12.9 cm in maximum dimension. FREE FLUID: None. US/US abdomen limited IMPRESSION: A cause for the right upper quadrant pain is not seen. Some echogenic bile/sludge is present in the gallbladder.
--- NOTE | 2020-07-15 21:41 | ED_ITS ---
HPI - Abdominal Pain General Chief Complaint: Nausea/Vomiting/Diarrhea Stated Complaint: VOMITING Time Seen by Provider: 07/15/20 21:25 Source: patient History of Present Illness HPI narrative: This is a 30-year-old female who is at 24 weeks without complications other than hyperemesis and states that approximately 3:00 p.m. this afternoon she began having epigastric / right upper quadrant pain without radiation that she states is sharp and crampy in nature. This is been associated with chills and nausea but no vomiting. Otherwise, she denies any urinary pain /burning /frequency, vaginal bleeding, vaginal discharge and states the baby is moving. Related Data Previous Rx's Medication Instructions Recorded hydroxyzine HCl 25 mg PO Q6-8H PRN #14 tab 07/09/20 Allergies Allergy/AdvReac Type Severity Reaction Status Date / Time No Known Allergies Allergy Unknown UNKNOWN Verified 07/15/20 20:21 [NO KNOWN ALLERGIES] Review of Systems Review of Systems Pertinent positives and negatives as stated in HPI 10 point review of systems is otherwise negative. Physical Exam Vital Signs: Vital Signs: Last Vital Signs Temp 98.2 F 07/15/20 20:21 Pulse 98 07/15/20 20:48 Resp 21 H 07/15/20 20:48 BP 139/76 07/15/20 20:48 Pulse Ox 99 07/15/20 20:48 Body Mass Index 37.7 VITAL SIGNS: Reviewed. GENERAL: Well developed, well nourished, in no acute distress. HEAD: Normocephalic/atraumatic, EYES: PERRLA, EOMI intact without pain, no nystagmus/pallor/icterus noted EARS: Ext canals without abnormality, TMs non-bulging and non-erythematous NOSE: Nares patent bilateral OROPHARYNX: no oral lesions noted, posterior pharynx clear and non-erythematous without noted tonsillar enlargement/erythema/exudates NECK: Supple, no adenopathy LUNGS: Normal breath sounds. No adventitious sounds or accessory muscle use. SpO2<99> CARDIOVASCULAR: Regular rate and rhythm without noted murmurs, no JVD or lower e xtremity edema. ABDOMEN: Soft, non-tender, non-distended with bowel sounds. No rigidity. No guarding. No palpable masses or hernias noted MUSCULOSKELETAL: No tenderness, deformities, or effusions noted on gross inspection. EXTREMITIES: No cyanosis, clubbing or edema. SKIN: Inspection of the skin reveals no rashes, ulcerations, jaundice, pallor, or petechiae. NEUROLOGIC: Alert and oriented x 4. Strength and sensation to light touch were grossly intact x 4. FHR: 136 Course Course Course Narrative: This is a 30-year-old female with history and clinical presentation most consistent with likely acute cholecystitis, cholestasis of , labor. This pain is not associated with any trauma. On review of all investigations there is a leukocytosis however this seems to be lateral in comparison to prior but there is a noted transaminemia with elevation of alkaline phosphatase but not bilirubin. Lipase is within normal limits. After further discussion with [facility] OB patient will be transferred over there for further evaluation and workup. Reevaluation(s) Reevaluation #1: I discussed case with doctors are be in terms of what pain medication is recommended in he states that fentanyl should be fine and recommends transfer to [facility]. Time: 21:45 Reevaluation #2: I discussed the case briefly with the transfer center at [facility]. Time: 21:55 Reevaluation #3: Patient will be transferred to [facility] under the care of Dr. Sykes. Time: 22:22 MDM - Abdominal Pain Lab Data Result diagrams: 07/15/20 20:36 07/15/20 20:36 Labs: Lab Results 07/15/20 12 Range/Units 20:36 20:36 WBC 18.4 H (4.8-10.8) X10*3/uL RBC 3.69 L (4.20-5.50) X10*6/uL Hgb 10.3 L (12.0-16.0) g/dl Hct 30.4 L (37-47) % MCV 82.4 (80-98) fL MCH 27.9 (27.0-33.0) pg MCHC 33.9 (31.0-35.0) g/dl RDW 13.3 (11.0-16.0) % Plt Count 369 (160-400) X10*3/uL MPV 8.6 L (9.4-12.3) fL Immature Gran % (Auto) 0.5 H (0.0-0.4) % Neut % (Auto) 86.0 H (45-73) % Lymph % (Auto) 9.8 L (20-40) % [place] % (Auto) 3.4 (2-11) % Eos % (Auto) 0.1 (0-4) % Baso % (Auto) 0.2 (0-2) % Lymph # (Auto) 1.8 (1.2-4.9) X10*3/uL [place] # (Auto) 0.6 (0.1-1.2) X10*3/uL Eos # (Auto) 0.0 (0.0-0.4) X10*3/uL Baso # (Auto) 0.0 (0.0-0.2) X10*3/uL Abs Immat Gran (auto) 0.10 H (0.00-0.03) X10*3/uL Absolute Neuts (auto) 15.8 H (2.0-8.3) X10*3/uL Absolute Nucleated RBC 0.000 (0.0-0.012) X10*3/uL Nucleated RBC % (auto) 0.0 (0.0-0.2) /100WBC Sodium 138 (135-145) mmol/L Potassium 3.2 L (3.3-5.1) mmol/l Chloride 102 (96-108) mmol/L Carbon Dioxide 26 (22-29) mmol/L Anion Gap 13 (12-20) BUN 5 L (9-16) mg/dL Creatinine 0.51 (0.5-1.4) mg/dL Estim Creat Clear Calc 178.4 Estimated GFR > 60 Random Glucose 109 (60-115) mg/dL Calcium 8.4 D (8.4-10.2) mg/dL Total Bilirubin 0.4 (0.0-1.0) mg/dL AST 133 H (5-31) U/L ALT 286 H (0-31) U/L Alkaline Phosphatase 162 H (39-117) U/L Total Protein 6.2 L (6.5-8.0) g/dL Albumin 3.4 L (3.5-5.0) g/dL Lipase 16 (8-78) U/L Discharge Plan Discharge Clinical Impression: Abdominal pain affecting [facility] Pres[facility]: No Action hydroxyzine HCl 25 mg tablet 25 mg PO Q6-8H PRN (Reason: nausea and vomiting) Qty: 14 RF: 0 PMFSH Past Medical History Source: nursing notes reviewed Social History Social History Household Members: Other Housing: Other Alcohol intake: never Smoking Status: Never smoker Smoked in Last 30 Days: No Use of substances other than those prescribed or required for medical reasons: No Substance Use Type: Marijuana Advance Directives: No Advance Directives Information Provided: No service: No Current occupational status: unemployed
[2020-07-15 21:46] LABS: Lipase 16 U/L (8-78)
[2020-07-15] MEDS: fentaNYL citrate/PF 100 MCG/2 ML VIAL 25 MCG IVPUSH ×2 (21:52→23:25)
--- NOTE | 2020-07-15 21:53 | PC.NURSE ---
[facility] PT TX LINE CALLED @ DR RUBIN REQUEST @ [phone] NATHALIE ANSWERS,TAKES PT INFO AND ASKS TO SPEAK WITH DR CARYN RUBIN TAKES OVER CALL RIGHT AWAY
[2020-07-15] MEDS: 0.9 % Sodium Chloride 1,000 ML 1000 ML IV (21:54)
--- NOTE | 2020-07-15 22:07 | PC.NURSE ---
RETURN CALL FROM REGIS FROM [facility] PT TX LINE @ [phone] DR RUBIN TAKES CALL RIGHT AWAY
[2020-07-15 22:31] VITALS: BP 139/83; PULSE 94; RESP 24; O2SAT 99
[2020-07-15 22:45] LABS: HCG Quantitative 28913 mIU/mL
--- NOTE | 2020-07-15 22:49 | PC.NURSE ---
CALL PLACED TO [facility] PT TX LINE @ THIS TIME TO FIND OUT ROOM ASSIGNMENT NATHALIE ANSWERS STATES NO ROOM ASSIGNMENT NEEDED JUST SEND PT TO MARCIE RN TO RN NUMBER [phone] [place]
[2020-07-15 23:27] VITALS: BP 135/87; PULSE 89; RESP 16; TEMP 36.7; O2SAT 99
== END 2020-07-16 00:18 | disposition short-term general hospital (02) ==
PROVIDERS: Emergency Provider Student in an Organized Health Care Education/Training Program
DX: O26.892 Other specified pregnancy related conditions, second trimester (principal); R10.13 Epigastric pain; R11.2 Nausea with vomiting, unspecified; Z3A.24 24 weeks gestation of pregnancy
CPT/HCPCS: 36415; 76705; 80053; 83690; 84702; 85025; 96361; 96374; 96375; 96376; 99284; 99285; J2405; J3010

== ENCOUNTER 2020-07-21 04:36 | Emergency (ER) | payer MEDICAID, SELFPAY ==
[2020-07-21 04:53] VITALS: BP 113/86; PULSE 113; RESP 20; TEMP 37; O2SAT 98; BMI 37.7
--- NOTE | 2020-07-21 05:27 | ED.ANXIETY ---
HPI - Anxiety General Chief Complaint: Anxiety Stated Complaint: anxiety Time Seen by Provider: 07/21/20 05:10 Related Data Previous Rx's Medication Instructions Recorded hydroxyzine HCl 25 mg PO Q6-8H PRN #14 tab 07/09/20 Allergies Allergy/AdvReac Type Severity Reaction Status Date / Time No Known Allergies Allergy Unknown UNKNOWN Verified 07/15/20 20:21 [NO KNOWN ALLERGIES] PMFSH Social History Social History Household Members: Other Housing: Other Alcohol intake: never Smoking Status: Never smoker Substance Use Type: Marijuana Advance Directives: No Advance Directives Information Provided: No service: No Current occupational status: unemployed Physical Exam Vital Signs: Vital Signs: Last Vital Signs Temp 98.6 F 07/21/20 04:53 Pulse 113 H 07/21/20 04:53 Resp 20 07/21/20 04:53 BP 113/86 07/21/20 04:53 Pulse Ox 98 07/21/20 04:53 Body Mass Index 37.7 Discharge Plan Discharge Clinical Impression: , Acute anxiety Patient Disposition: Home, Self-Care Instructions: (ED), Anxiety (ED) Additional Instructions: Please stop using marijuana. 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 You have had marijuana or inducing anxiety in the past. Please stop using cocaine. Using substances such as cocaine can be detrimental to your baby's health. Please stop. Please go to detox. Prescriptions: No Action hydroxyzine HCl 25 mg tablet 25 mg PO Q6-8H PRN (Reason: nausea and vomiting) Qty: 14 RF: 0 Referrals: Physician,Unknown [Primary Care Provider] - 2 days
--- NOTE | 2020-07-21 05:33 | ED_ITS ---
HPI - Anxiety General Chief Complaint: Anxiety Stated Complaint: anxiety Time Seen by Provider: 07/21/20 05:10 History of Present Illness HPI narrative: Patient is a 30-year-old female . Previous history of substance abuse currently is about 27 weeks . Patient has a has a history of hyper emesis. Patient started using marijuana. The marijuana head induced hyperemesis in the past. Has also caused her to have high amount of anxiety. Patient also has anxiety when she uses cocaine. Patient admits to using polysubstance tonight. Presented with anxiety. Patient denies any suicidal homicidal ideation. No fever no chills. No coughing or congestion or upper respiratory symptoms. No abdominal pain. No vaginal bleeding. No discharge. Patient is from home. MD complaint: anxiety Related Data Previous Rx's Medication Instructions Recorded hydroxyzine HCl 25 mg PO Q6-8H PRN #14 tab 07/09/20 Allergies Allergy/AdvReac Type Severity Reaction Status Date / Time No Known Allergies Allergy Unknown UNKNOWN Verified 07/15/20 20:21 [NO KNOWN ALLERGIES] Review of Systems Review of Systems: Constitutional: No Weight loss, No Fever, No Chills, No Night Sweats, No Fatigue, No Malaise ENT/Mouth: No Hearing loss, No Ear Pain, No Nasal Congestion, No Sinus Pain, No Hoarseness, No sore throat, No Rhinorrhea, No Swallowing Difficulty Eyes: No Eye Pain, No Swelling, No Redness, No Foreign Body, No Discharge, No Vision Changes Cardiovascular: No Chest Pain, No SOB, No Dyspnea on Exertion, No Orthopnea, No Edema, No Palpitations Respiratory: No Cough, No Sputum, No Wheezing, No Smoke Exposure, No Dyspnea Gastrointestinal: No Nausea, No Vomiting, No Diarrhea, No Constipation, No abdominal Pain, No Hematochezia, No Melena Genitourinary: no irregular bleeding, No Dysuria, No Urinary Frequency, No Hematuria, No Urinary Incontinence, No Urgency, No Flank Pain, No Urinary Flow Changes, No Hesitancy Musculoskeletal: No joint pain, No Myalgias, No Joint Swelling Skin: No Skin Lesions, No rash Neuro: No Weakness, No Numbness, No Paresthesias, No Loss of Consciousness, No Dizziness, No Headache Psych: No Anxiety/Panic, No Depression, No SI/HI/AH/VH, No Social Issues, Heme/Lymph: No Bruising, No Bleeding,No Lymphadenopathy Endocrine: No Polyuria, No Polydipsia, No Temperature Intolerance [facility] Past Medical History Attestation statement: The following information was validated with the patient. Social History Social History Household Members: Other Housing: Other Alcohol intake: never Smoking Status: Never smoker Substance Use Type: Marijuana Advance Directives: No Advance Directives Information Provided: No service: No Current occupational status: unemployed Physical Exam Vital Signs: Vital Signs: Last Vital Signs Temp 98.6 F 07/21/20 04:53 Pulse 113 H 07/21/20 04:53 Resp 20 07/21/20 04:53 BP 113/86 07/21/20 04:53 Pulse Ox 98 07/21/20 04:53 Body Mass Index 37.7 Appearance: Alert. Oriented X3. No acute distress. Eyes: Pupils equal, round and reactive to light. ENT: Pharynx normal. Neck: Normal inspection. Neck supple. No lymph nodes noted. No crepitus CVS: Normal heart rate and rhythm. Pulses normal. Normal S1 and S2 Respiratory: No respiratory distress. Breath sounds normal. No Wheezing. No rales Abdomen: Gravid uterus at the level just above the umbilicus. , nontender, No distention. good BS x4 Skin: Skin warm and dry. Normal skin color. Normal skin turgor. Extremities: No lower extremity edema. Neurovascular intact to all extremities. No Lacerations. No Rash Neuro: Oriented X 3. No motor deficit. No sensory deficit. Moving all extermities. No slurred speech MDM - Anxiety MDM Narrative Medical decision making narrative: well-appearing no acute distress. heart tone was 150. Symptom improved on patient leaving the psychiatric area. Patient feels anxiety much relief. Discussed with patient the need to stop using cocaine and or marijuana. Patient states understanding. Will discharge patient home currently in stable condition Differential Diagnosis Differential diagnosis: Likely hyperventilation, panic disorder and acute anxiety Medical Records Attestation: I reviewed the patient's medical records. Discharge Plan Discharge Clinical Impression: , Acute anxiety Patient Disposition: Home, Self-Care Instructions: (ED), Anxiety (ED) Additional Instructions: Please stop using marijuana. 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 You have had marijuana or inducing anxiety in the past. Please stop using cocaine. Using substances such as cocaine can be detrimental to your baby's health. Please stop. Please go to detox. Prescriptions: No Action hydroxyzine HCl 25 mg tablet 25 mg PO Q6-8H PRN (Reason: nausea and vomiting) Qty: 14 RF: 0 Referrals: Physician,Unknown [Primary Care Provider] - 2 days
== END 2020-07-21 05:39 | disposition home or self-care (01) ==
PROVIDERS: Emergency Provider Emergency Medicine Emergency Medical Services
DX: O99.322 Drug use complicating pregnancy, second trimester (principal); F41.9 Anxiety disorder, unspecified; O99.342 Other mental disorders complicating pregnancy, second trimester; Z3A.24 24 weeks gestation of pregnancy
CPT/HCPCS: 99283

== ENCOUNTER 2020-11-14 10:51 | Outpatient (REF) | payer MEDICAID, SELFPAY ==
[2020-11-14 15:15] LABS: SARS COV2 PCR INHOUSE NEGATIVE (Negative)
== END 2020-11-14 10:52 | disposition home or self-care (01) ==
LOC: HO.LAB 10:51
PROVIDERS: Visit Provider Internal Medicine
DX: Z20.822 Contact with and (suspected) exposure to COVID-19 (principal)
CPT/HCPCS: C9803; U0003

== ENCOUNTER 2021-10-28 16:32 | Emergency (ER) | payer MEDICAID, SELFPAY ==
[2021-10-28 17:26] VITALS: BP 135/93; PULSE 79; RESP 18; TEMP 36.8; O2SAT 99; BMI 37.3
[2021-10-28 21:09] VITALS: BP 116/78; BP 123/69; PULSE 77; PULSE 80
[2021-10-28 21:10] VITALS: BP 129/73; PULSE 70
[2021-10-28 21:12] VITALS: BP 116/78; PULSE 80; RESP 20; TEMP 37; O2SAT 100
--- NOTE | 2021-10-28 21:19 | ED.DIZZY ---
HPI - Dizziness General Chief Complaint: Dizziness Stated Complaint: w Time Seen by Provider: 10/28/21 17:40 Source: patient Mode of arrival: ambulatory Limitations: no limitations History of Present Illness HPI Narrative: Patient history of anxiety been feeling anxious since morning with multiple complaints feel dizzy feels black spots in front of eyes no nausea no vomiting no fever no chills no shortness of breath feels everything started after taking the COVID vaccine 3 weeks ago. Patient was given Zoloft last year which she took only for 3 weeks did not take it afterwards Related Data Previous Rx's Medication Instructions Recorded hydroxyzine HCl 25 mg tablet 25 mg PO Q6-8H PRN #14 tab 07/09/20 lorazepam 1 mg tablet (Ativan) 1 mg PO BEDTIME PRN #14 tab 10/28/21 Allergies Allergy/AdvReac Type Severity Reaction Status Date / Time No Known Allergies Allergy Unknown UNKNOWN Verified 07/15/20 20:21 [NO KNOWN ALLERGIES] Review of Systems Review of Systems: Yes all other systems are reviewed and are negative [facility] Social History Social History Household Members: Other Housing: Other Alcohol intake: never Substance Use Type: Marijuana Advance Directives: No Patient : Yes service: No Current occupational status: unemployed Physical Exam Vital Signs: Vital Signs: Last Vital Signs Temp 98.6 F 10/28/21 21:12 Pulse 80 10/28/21 21:12 Resp 20 10/28/21 21:12 BP 116/78 10/28/21 21:12 Pulse Ox 100 10/28/21 21:12 BMI result Body Mass Index 37.3 Appearance: Alert. Oriented X3. No acute distress. Anxious Eyes: No pallor icterus ENT: Pharynx normal. Oral Mucosa moist Neck: Normal inspection. Neck supple. CVS: Normal heart rate and rhythm. Pulses normal. Respiratory: No respiratory distress. Equal air entry bilateral, Abdomen: Soft and nontender. Bowel sounds are present, Skin: Skin warm and dry. Normal skin color. Normal skin turgor. Extremities: No lower extremity edema. No calf tenderness Neuro: Oriented X 3. No motor deficit. MDM - Dizziness MDM Narrative Medical decision making narrative: Patient POC 97 UA is negative negative discharge patient home with diagnosis of anxiety Lab Data Labs: Lab Results 0310/28/21 10/28/21 Range/Units 21:41 21:46 21:46 POC Glucose 97 (60-115) mg/dL Urine Color YELLOW Urine Appearance CLEAR Urine pH 6.0 (5.0-8.0) Ur Specific [place] 1.025 (1.005-1.025) Urine Protein 1+ H (NEG-TRACE) MG/DL Urine Glucose (UA) NEG (NEG) MG/DL Urine Ketones NEG (NEG) MG/DL Urine Blood 3+ H (NEG) Urine Nitrite NEG (NEG) Ur Leukocyte Esterase NEG (NEG) Urine RBC 30-49 H (0) /HPF Urine WBC 0 (0-4) /HPF Ur Squamous Epith Cells 1+ /LPF Urine Bacteria NONE /LPF Epithelial Casts 0-2 /LPF Urine Mucus 2+ /LPF Urine Test NEGATIVE (NEGATIVE) Discharge Plan Discharge Clinical Impression: Anxiety Patient Disposition: Home, Self-Care Instructions: Anxiety (ED) Additional Instructions: Rest at home Take medication for severe anxiety Follow up with PCP Prescriptions: New lorazepam [Ativan] 1 mg tablet 1 mg PO BEDTIME PRN (Reason: anxiety) Qty: 14 0RF No Action hydroxyzine HCl 25 mg tablet 25 mg PO Q6-8H PRN (Reason: nausea and vomiting) Qty: 14 0RF Interventions: ED Discharge Assessment Last Done: 10/28/21 22:20 Discharge Date/Time: 10/28/21 22:21
[2021-10-28 21:49] LABS: Glucose, Whole Blood 97 mg/dL (60-115)
[2021-10-28] MEDS: LORazepam 1 MG TABLET PO (21:53)
[2021-10-28 22:01] LABS: Appearance Urine CLEAR; Color Urine YELLOW; Glucose Urine UA NEG (NEG); Leukocyte Esterase Urine NEG (NEG); Nitrite Urine NEG (NEG); Specific Gravity - Urine 1.025 (1.005-1.025); UACC Culture Trigger NO; Urine Blood 3+ (NEG); Urine Ketones NEG (NEG); Urine Protein 1+ MG/DL (NEG-TRACE)
[2021-10-28 22:02] LABS: UPreg QC Valid YES; Urine Pregnancy NEGATIVE (NEGATIVE)
[2021-10-28 22:09] LABS: Epith (RTE) Cast 0-2 /LPF; Mucus Urine 2+ /LPF; RBC Urine 30-49 /HPF (0); Squamous Epithelial Cell Urine 1+ /LPF; WBC Urine 0 /HPF (0-4)
== END 2021-10-28 22:21 | disposition home or self-care (01) ==
PROVIDERS: Emergency Provider Internal Medicine
DX: R42 Dizziness and giddiness (principal); F41.1 Generalized anxiety disorder; F43.0 Acute stress reaction; Z79.899 Other long term (current) drug therapy
CPT/HCPCS: 81001; 81003; 81025; 82947; 99283; 99284

== ENCOUNTER 2023-01-24 16:24 | Outpatient (REF) | payer MEDICAID, SELFPAY ==
--- NOTE | ~2023-01-24 | XR_ITS ---
EXAMINATION: XR CHEST CLINICAL INFORMATION: Few surgical COMPARISON: None available. TECHNIQUE: 2 views of the chest were obtained. FINDINGS: No significant abnormality is noted involving the heart, lungs, mediastinum, bony thorax or soft tissues. XR/XR chest 2V IMPRESSION: Unremarkable examination.
== END 2023-01-24 16:25 | disposition home or self-care (01) ==
LOC: HO.XRAY 16:24
PROVIDERS: Referring Provider Plastic Surgery; Visit Provider Registered Nurse
DX: Z01.818 Encounter for other preprocedural examination (principal)
CPT/HCPCS: 71046

== ENCOUNTER 2024-10-04 08:35 | Outpatient (REF) | payer MEDICAID, SELFPAY ==
--- OUTSIDE RECORDS SUMMARY | 2024-10-04 09:10 | XMS_ITS | Clinical Summary ---
Author Organization [employer] [facility] ity Address [address] [place] [address] Care Team Providers Care Checking Department Supervisor Name Role Phone Luz Maria Walton SUPERVISOR PASTE MIXING Primary Care Provider [phone] Surgical History Surgery Date Site/Laterality Comments SECTION PROCEDURE: HISTORICAL DELIVERY Medical History Medical History Date Comments Abnormal cytological finding in specimen from cervix DX:Abnormal cytological find ing in specimen from cervix Anemia DX:Anemia Family History Medical History Relation Name Comments Ovarian cancer Aunt not definite Other cancer Maternal Grandfather Diabetes Mother Hypertension Mother Relation Name Status Comments Aunt Maternal Grandfather Mother Social History Tobacco Use Types Packs/Day Years Used Date Smoking Tobacco: Light Smoker Smokeless Tobacco: Never Alcohol Use Standard Drinks/Week Comments Yes 0 (1 standard drink = 0.6 oz pur e alcohol) Comments Unknown Sex and Gender Information Value Date Recorded Sex Assigned at Not on file Legal Sex Female 5:20 AM EST Gender Identity Not on file Sexual Orientation Not on file Obstetrics History Plan of Treatment Health Maintenance Due Date Last Done Comments DTaP,Tdap,and Td Vaccines (1 - Tdap) 2009 Hepatitis B Vaccines (1 of 3 - 19+ 3-dose series) 2009 Pneumococcal Vaccine: Pediatrics (0 to 5 Years) and At-Risk Patients (6 to 64 Years) (1 of 2 - PCV) 2009 Cervical Cancer Screening: P ap Smear 07/14/2021 07/14/2018, 07/14/2018 Depression Screening 09/13/2023 HIV Screening 09/13/2023 Hepatitis C Screening 09/13/2023 Social Influencers of Health Screening 09/13/2023 COVID-19 Vaccine ( - 2023-2 5 season) 2024 Influenza Vaccine (#1) 2024 HIB Vaccines Aged Out No longer eligi ble based on patient's age to complete this topic HPV Vaccines Aged Out No longer eligi ble based on patient's age to complete this topic Hepatitis A Vaccines Aged Out No long er eligible based on patient's age to complete this topic IPV Vaccines Aged Out No longer eligi ble based on patient's age to complete this topic MMR Vaccines Aged Out No longer eligi ble based on patient's age to complete this topic Meningococcal ACWY Vaccine Aged Out N o longer eligible based on patient's age to complete this topic Meningococcal B Vacine Aged Out No lo nger eligible based on patient's age to complete this topic RSV Immunization Patients Under 20 months Aged Out No longer eligible b ased on patient's age to complete this topic Varicella Vaccines Aged Out No longer eligible based on patient's age to complete this topic Procedures Procedure Name Priority Date/Time Associated Diagnosis Comments PAP SMEAR Routine 07/14/2018 from Last 3 Months or Most Recently Relevant to Health Maintenance Results * Pap smear (07/14/2018) 07/14/2018 Narrative HISTORICAL TESTING LAB RESULTING AGENCY - 07/18/2018 4:58 PM EST [id number] RESULTS OF GEN-PROBE APTIMA COMBO 2 ASSAY CHLAMYDIA: ?NEGATIVE N. GONORRHOEAE: ? NEGATIVE YENI PISANO M.D. , PATHOLOGIST (CASE ELECTRONICALLY SIGNED 07 18 2018) CLINICAL INFORMATION: Z12.4, Z87.898 Z11.3 ENCOUNTER FOR SCREENING FOR INFECTIONS WITH A PREDOMINANTLY SEXUAL MODE OF TRANSMISSION SOURCE: THINPREP PAP FOR CT/GC GROSS DESCRIPTION: THINPREP VIAL RECEIVED. [facility] Daylin Weir CN LAB CYTOLOGY ORDERABLES Final Result HISTORICAL TESTING LAB RESULTING AGENCY from Last 3 Months or Most Recently Relevant to Health Maintenance Care Teams Checking Department Supervisor Relationship Specialty Start Date End Date Luz Maria Walton FNP PCP - General Internal Medicine 02/07/14
[2024-10-04 11:41] LABS: Appearance Urine Clear; Color Urine Yellow; Glucose Urine UA Negative (Negative); Leukocyte Esterase Urine Negative (Negative); Nitrite Urine Negative (Negative); PH 6.5 (5.0-9.0); Specific Gravity - Urine >= 1.030 (1.005-1.025); UMIC TRIGGER UA YES; Urine Blood Large (3+) (Negative); Urine Ketones Negative (Negative); Urine Protein 100 (2+) mg/dL (Neg-Trace)
[2024-10-04 11:43] LABS: MANUAL DIFF FLAG NO
[2024-10-04 11:46] LABS: Bacteria Urine Trace (None Seen); Hyaline Casts Urine 0-2 /LPF (0-2); RBC Urine >20 /HPF (0-2); Squamous Epithelial Cell Urine 0-2 /HPF (0-2); WBC Urine 0-5 /HPF (0-5)
[2024-10-04 11:49] LABS: Basophils Percent Auto 0.4 % (0-2); Eosinophils Absolute Auto 0.4 X10*3/uL (0.0-0.4); Eosinophils Percent Auto 3.6 % (0-4); Hematocrit 36.4 % (37.0-47.0); Hemoglobin 11.8 g/dl (12.0-16.0); Imm Gran Abs Auto 0.04 X10*3/uL (0.00-0.03); Imm Gran Pct Auto 0.4 % (0.0-0.4); Lymphocytes Absolute Auto 3.2 X10*3/uL (1.2-4.9); Lymphocytes Percent Auto 29.5 % (20-40); Mean Corpuscular HGB Conc 32.4 g/dl (31.0-35.0); Mean Corpuscular Hemoglobin 26.3 pg (27.0-33.0); Mean Corpuscular Volume 81.1 fL (80.0-98.0); Mean Platelet Volume 9.2 fL (9.4-12.3); Monocytes Absolute Auto 0.8 X10*3/uL (0.1-1.2); Monocytes Percent Auto 7.3 % (2-11); Neutrophils Absolute Auto 6.3 x10*3/uL (2.0-8.3); Neutrophils Percent Auto 58.8 % (45-73); Platelet Count 394 X10*3/uL (160-400); Red Blood Count 4.49 X10*6/uL (4.20-5.50); Red Cell Distribution Width 14.4 % (11.0-16.0); White Blood Count 10.7 X10*3/uL (4.8-10.8)
[2024-10-04 12:01] LABS: Estimated Average Glucose 111 mg/dL; Hemoglobin A1C 112.4386 umol/L; Hemoglobin A1c % 5.5 % (<6.0); Total Hemoglobin (HGBA1C) 3088.4485 umol/L
[2024-10-04 12:08] LABS: Anion Gap 11 (12-20); Blood Urea Nitrogen 14 mg/dL (9-16); Calcium 8.9 mg/dL (8.4-10.2); Carbon Dioxide 27 mmol/L (22-29); Chloride 109 mmol/L (96-108); Cholesterol 262 mg/dL (<200); Estimated Glomerular Filt Rate > 60; Glucose Random 95 mg/dL (60-115); HDL Cholesterol 42 mg/dL (>40); LDL Cholesterol Calculated 194 mg/dL (<100); Potassium 3.8 mmol/L (3.3-5.1); Sodium 143 mmol/L (135-145); Triglycerides 131 mg/dL (<150)
[2024-10-04 12:23] LABS: TSH reflex Free T4 0.95 uIU/mL (0.32-4.0)
[2024-10-04 12:29] LABS: TSH reflex Free T4 0.95 uIU/mL (0.32-4.0)
== END 2024-10-04 08:36 | disposition home or self-care (01) ==
LOC: HO.HHCL 08:35
PROVIDERS: Advanced Practice Midwife; Nurse Practitioner; Visit Provider Registered Nurse
DX: E66.09 Other obesity due to excess calories (principal); Z68.39 Body mass index [BMI] 39.0-39.9, adult; R31.29 Other microscopic hematuria; R00.2 Palpitations
CPT/HCPCS: 36415; 80048; 80061; 81001; 83036; 84443; 85025

== ENCOUNTER → 2024-10-09 09:49 | Outpatient (REF) | payer MEDICAID, SELFPAY ==
--- OUTSIDE RECORDS SUMMARY | 2024-10-09 11:11 | XMS_ITS | Clinical Summary ---
Author Organization [employer] [facility] ity Address [address] [place] [address] Care Team Providers Care Executive Producer Promos Name Role Phone Luz Maria Walton DYE COLORIST FORMULATOR Primary Care Provider [phone] Surgical History Surgery Date Site/Laterality Comments SECTION [...] RESULTING AGENCY - 07/18/2018 4:58 PM EST [id number] RESULTS OF GEN-PROBE APTIMA COMBO 2 ASSAY [...] Recently Relevant to Health Maintenance Care Teams Executive Producer Promos Relationship Specialty Start Date End Date Luz Maria Walton FNP PCP - General Internal Medicine 02/07/14
== END ==
LOC: HO.CARD 09:49
PROVIDERS: PCP Nurse Practitioner; Visit Provider Registered Nurse
DX: R07.9 Chest pain, unspecified (principal)
CPT/HCPCS: 93225

== ENCOUNTER → 2024-10-09 09:52 | Outpatient (BNV) | payer MEDICAID, SELFPAY | PROVIDERS: PCP Nurse Practitioner; Visit Provider Internal Medicine Cardiovascular Disease | DX: R00.0 Tachycardia, unspecified (principal) | CPT/HCPCS: 93227 ==

== ENCOUNTER 2024-10-15 09:55 | Outpatient (REF) | payer MEDICAID, SELFPAY ==
--- OUTSIDE RECORDS SUMMARY | 2024-10-15 11:13 | XMS_ITS | Clinical Summary ---
Author Organization [employer] [facility] ity Address [address] [place] [address] Care Team Providers Care Manager Fine Dining Name Role Phone Luz Maria Walton ROVING TECHNICIAN Primary Care Provider [phone] Surgical History Surgery Date Site/Laterality Comments SECTION [...] RESULTING AGENCY - 07/18/2018 4:58 PM EST [id number] RESULTS OF GEN-PROBE APTIMA COMBO 2 ASSAY [...] Recently Relevant to Health Maintenance Care Teams Manager Fine Dining Relationship Specialty Start Date End Date Luz Maria Walton FNP PCP - General Internal Medicine 02/07/14
[2024-10-16 12:47] LABS: Varicella IgG Antibody 5.41 S/CO
== END 2024-10-15 09:56 | disposition home or self-care (01) ==
LOC: HO.HHCL 09:55
PROVIDERS: Visit Provider Nurse Practitioner
DX: R14.0 Abdominal distension (gaseous) (principal); Z71.85 Encounter for immunization safety counseling
CPT/HCPCS: 36415; 86787; 87338

== ENCOUNTER 2025-03-26 09:28 | Outpatient (AMB) | payer MEDICAID, SELFPAY ==
--- NOTE | 2025-03-26 09:35 | A.OFFVIS_ITS ---
Vital Signs 03/26/25 09:37 Height 5 ft 3 in Weight 222 lb 10.67 oz BMI 39.4 BP 134/80 Blood Pressure Location Lt brachial Position Sitting Pulse 76 Pulse Source Monitor Intake Visit Reasons: HAND LACER/Cristina Amadeo/Chest pain Phlebotomist Medical Lab Assistant Required: No Accompanied by: Self / Same As Patient Allergies No Known Allergies (NO KNOWN ALLERGIES) Allergy (Unknown, Verified 10/05/24 07:34) UNKNOWN Medication List - Last Reconciled 03/26/25 by Chava Velásquez MD No Known Home Meds HPI Comments Details: The patient is a 34-year-old female presenting with palpitations and chest pain. She reports experiencing palpitations that occur randomly, both during the day a nd at night, without any prior history of heart problems. These episodes are sometimes accompanied by sharp chest pain radiating from the shoulder to the elbow, occurring twice. Most of the time, the palpitations occur without pain. The patient also experiences dyspnea on exertion, such as when climbing stairs or performing doctor osteopathic, with her heart rate reaching 150 bpm. She denies any history of diabetes, hypertension, or asthma. She has been advised to lose weight due to elevated cholesterol levels, although no specific heart concerns were previously noted. The patient has a history of anxiety, which she manages by smoking marijuana, although she has reduced her intake significantly. She experiences anxiety in new situations, leading to symptoms such as sweaty hands. A previous heart monitor test recorded some fast heart rates, but they were not deemed serious. PENDING SALE TO [facility] Family History Family/Other Heart attack Social History Household Members: Other Housing: Other Alcohol intake: never Patient Tobacco Use Status: Never used Tobacco Substance Use Type: Marijuana service: No Current occupational status: unemployed Review of Systems Const Denies chills, Denies fatigue, Denies fever(s), Denies frequent falls, Denies weakness, Denies weight gain and Denies weight loss ENT Denies dizziness Card Denies chest pain, Denies leg edema, Reports lightheadedness, Reports palpitations, Reports dyspnea, Reports dyspnea on exertion and Denies orthopnea Resp Denies cough, Reports dyspnea and Reports dyspnea on exertion GI Denies bloating and Denies change in bowel habits Musc Denies muscle weakness, Denies numbness and Denies tingling Neuro Denies dizziness, Denies frequent falls, Denies numbness, Denies tingling and Denies weakness Endo Denies fatigue and Reports palpitations Physical Exam Vital Signs: Last Vital Signs Pulse 76 03/26/25 09:37 BP 134/80 03/26/25 09:37 BMI result Body Mass Index 39.4 Const General: comfortable and no acute distress Orientation/consciousness: patient oriented x3 HEENT Other: Unremarkable Head: Yes normal to inspection Neck Neck: Yes normal visual inspection Chest Chest palpation & inspection: normal inspection of the chest Resp Auscultation: clear to auscultation bilaterally Cardio Palpation: normal PMI Heart sounds: S1 normal heart sound present, S2 normal heart sound present, no gallops, no murmurs and no rubs GI Palpation (GI): Soft to palpation Back/Spine/Pelvis Other: unremarkable Skin General skin exam: no rashes or lesions noted Neuro General: patient oriented x3 Extrem General: Yes normal to inspection Psych Mental Status: mental status grossly normal Office Procedures EKG Details: EKG with underlying sinus rhythm at 76/Min; sinus arrhythmias; no ischemic changes; [place]. [id number], Complete Assessment & Plan Assessment & Plan (1) SOB (shortness of breath): Code(s): R06.02 - Shortness of breath Category: Medical (2) Palpitations: Code(s): R00.2 - Palpitations Category: Medical (3) Obesity: Code(s): E66.9 - Obesity, unspecified Category: Medical Plan Holter monitor, underlying sinus rhythm at 91/Min. Frequent sinus tachycardia. Patient markers correlated with sinus rhythm or sinus tachycardia. The plan includes conducting a home sleep study to evaluate for sleep apnea, as it may be contributing to the patient's symptoms. An echocardiogram is also recommended to assess cardiac function and rule out any structural heart issues. If these tests return normal results, the primary recommendation is weight loss to potentially alleviate symptoms. The patient is advised to continue reducing marijuana use as it is not clear if contributing to her palpitations. Discussion Notes I discussed with the patient the need for a home sleep study to check for sleep apnea, which could be affecting her heart health. We also talked about performing an echocardiogram to evaluate her heart's function. I emphasized the importance of weight loss if the tests are normal and advised her to reduce marijuana use. Patient was informed and verbally consented to the use of an ambient scribe for clinic note documentation during this visit. Orders: Orders RT home sleep study Today Chava Velásquez MD G47.33 - Obstructive sleep apnea (adult) (pediatric), R06.02 - Shortness of breath CA echo transthoracic complete Today Chava Velásquez MD R06.02 - Shortness of breath Medications: Discontinued hydroxyzine HCl Discontinued Reason: Patient no longer taking 25 mg PO Q6-8H PRN 14 tabs 0RF nausea and vomiting Clementina Desai CMA lorazepam (Ativan) Discontinued Reason: Patient no longer taking 1 mg PO BEDTIME PRN 14 tabs 0RF anxiety Clementina Desai CMA Coding Level of Care Code New Pt Level 4 (51464) Diagnoses SOB (shortness of breath) R06.02 Palpitations R00.2 Obesity E66.9 CPT Codes EKG - CPT: 12984-[id number], Complete ([id number])
[2025-03-26 09:37] VITALS: BP 134/80; PULSE 76; BMI 39.4
--- OUTSIDE RECORDS SUMMARY | 2025-03-26 10:08 | XMS_ITS | Clinical Summary ---
Author Organization [facility] it Address [address] [place] [address] Care Team Providers Care Medical Data Analyst Name Role Phone Luz Maria Walton TEA PLANTATION WORKER Primary Care Provider [phone] Surgical History Surgery Date Site/Laterality Comments SECTION [...] 5 Years) and At-Risk Patients (6 to 49 Years) (1 of 2 - PCV) 2009 Cervical Cancer Screening: P ap Smear 07/14/2021 07/14/2018, 07/14/2018 HIV Screening 09/13/2023 Hepatitis C Screening 09/13/2023 Social Influencers of Health Screening 09/13/2023 COVID-19 Vaccine ( - 2023-2 5 season) 2024 Depression Screening 08/15/2024 Influenza Vaccine (#1) 2025 HIB Vaccines Aged Out No longer eligi [...] age to complete this topic Meningococcal B Vaccine Aged Out No l onger eligible based on patient's age to complete [...] RESULTING AGENCY - 07/18/2018 4:58 PM EST [id number] RESULTS OF GEN-PROBE APTIMA COMBO 2 ASSAY CHLAMYDIA: NEGATIVE N. GONORRHOEAE: NEGATIVE YENI PISANO M.D. , PATHOLOGIST (CASE [...] Recently Relevant to Health Maintenance Care Teams Medical Data Analyst Relationship Specialty Start Date End Date Luz Maria Walton FNP PCP - General Internal Medicine 02/07/14
== END 2025-03-26 10:29 | disposition home or self-care (01) ==
LOC: HO.HCS 09:29
PROVIDERS: PCP Nurse Practitioner; Visit Provider Internal Medicine
DX: R06.02 Shortness of breath (principal); R00.2 Palpitations; E66.9 Obesity, unspecified
CPT/HCPCS: 93010; 99204

== ENCOUNTER → 2025-03-26 09:28 | Outpatient (BNVA) | payer MEDICAID, SELFPAY | PROVIDERS: PCP Nurse Practitioner; Visit Provider Internal Medicine | DX: R00.2 Palpitations (principal); R07.9 Chest pain, unspecified; R06.02 Shortness of breath; E66.9 Obesity, unspecified | CPT/HCPCS: 93005; 99202 ==

== ENCOUNTER 2025-05-01 18:11 | Emergency (ER) | payer MEDICAID, SELFPAY ==
--- NOTE | ~2025-05-01 | XR_ITS ---
CLINICAL HISTORY: cough left pleuritic chest pain 2 view chest x-ray Comparison: 01/24/2023 Findings: Lungs are clear without acute infiltrates. No pneumothorax. Heart size normal. No acute bony abnormalities. Impression: No acute processes This document has been electronically signed by: Miguel Arango MD on 05/01/2025 20:52:21
[2025-05-01 18:16] VITALS: BP 118/80; PULSE 84
[2025-05-01 18:19] VITALS: BMI 39.3
[2025-05-01 18:22] VITALS: BP 132/76; PULSE 78; RESP 16; TEMP 36.9; O2SAT 98
[2025-05-01 19:48] LABS: COVID-19 Test Negative (Negative); IDNOW Serial# 55D5AD1C; IDNOW Serial# 58CA691E; Influenza B2 Negative (Negative)
--- NOTE | 2025-05-01 20:19 | ED_ITS ---
HPI - General Adult General Chief complaint: Upper Respiratory Symptoms Stated complaint: Left flank pain X5 days with cough Time Seen by Provider: 05/01/25 18:43 Source: patient, RN notes reviewed and old records reviewed Mode of arrival: EMS Limitations: no limitations History of Present Illness ED Provider: Orquidea MEDINA narrative: 35-year-old female presents for evaluation of cough and left flank pain. She reports her symptoms started about 5 days ago. She reports that she had itching in her ears, congestion and a cough last 5 days pain Today she developed left flank pain. Denies any sick contacts pain She denies any sore throat, fevers Denies any burning with urination or blood in the urine. She does endorse some mild abdominal discomfort which she attributes to coughing as in his worse with the coughing Related Data Home Medications ?Medication ?Instructions ?Recorded ?Confirmed No Known Home Meds 03/26/25 03/26/25 Allergies Allergy/AdvReac Type Severity Reaction Status Date / Time No Known Allergies (NO KNOWN Allergy Unknown UNKNOWN Verified 05/01/25 18:21 ALLERGIES) Review of Systems Constitutional: Constitutional: Denies body ache(s), Denies chills and Denies fever(s) Eyes: Eyes: Denies blurry vision ENT: Denies vertigo and Denies dizziness Cardiovascular: Cardiovascular: Denies chest pain, Denies dyspnea and Denies dyspnea on exertion Respiratory: Respiratory: Reports cough, Reports pain on inspiration, Reports pain with cough, Denies dyspnea and Denies dyspnea on exertion Gastrointestinal: Gastrointestinal: Reports abdominal pain, Denies nausea and Denies vomiting Musculoskeletal: Musculoskeletal: Reports back pain Integumentary/Breasts: Skin/Breast: Denies rash Neurologic: Denies vertigo and Denies dizziness [facility] Family History Family History Family/Other Heart attack Social History Social History Household Members: Other Housing: Other Alcohol intake: never Patient Tobacco Use Status: Never used Tobacco Smoked in Last 30 Days: No Substance Use Type: Marijuana Advance Directives: No Advance Directives Information Provided: Yes service: No Current occupational status: unemployed Physical Exam ED Vital Signs: Vital Signs - 24 hr 05/01/25 18:22 05/01/25 18:22 Temperature 98.5 F Pulse Rate 78 Respiratory Rate 16 Blood Pressure 132/76 Pulse Oximetry 98 98 Oxygen Delivery Method Room Air Room Air BMI result Body Mass Index 39.3 Const General: healthy appearing, comfortable, no acute distress, alert and awake Nutritional Appearance: well nourished Orientation/consciousness: patient oriented x3 HENMT Head: Yes normocephalic and Yes atraumatic Throat: Yes posterior oropharynx normal Eyes Eyelids: Yes eyelids normal Conjunctivae: conjunctivae normal Sclerae: sclerae normal Corneas: corneas normal Pupils: Equal, round and reactive pupils present EOM: EOMs intact bilaterally Neck Neck: Yes full ROM Resp Effort & Inspection: normal respiratory effort, able to speak in complete sentences, no audible wheezes and not labored Auscultation: clear to auscultation bilaterally Cardio Rate: regular rate Rhythm: regular rhythm GI Inspection: No distended Palpation (GI): Soft to palpation, not firm, nontender, no guarding and not rigid Skin General skin exam: elasticity normal Neuro General: patient oriented x3 Cranial nerves: Yes Equal, round and reactive pupils present and Yes Bilaterally intact EOM present Cognition (Neuro): normal cognition Extrem Other: Moving all extremities well without any obvious deformities Course Reevaluation(s) Reevaluation #1: Patient's workup largely unremarkable, viral swabs negative, chest x-ray is clear. Her pain is muscle related to a viral illness, she is complaining of the headache, we will treat with Toradol and she can safely be discharged home Time: 21:34 Medical Decision Making Medical Decision Making MDM Narrative: Male presents for evaluation of coughing and left flank pain. Symptoms started 5 days ago. Her pain is worse with coughing and deep inspiration. Vital signs are within normal limits, her lungs are clear to auscultation abdominal exam is benign. She had no CVA tenderness, no urinary complaints. Plan for viral testing and chest x-ray to evaluate for pneumonia. Her pain seems pleuritic and likely due to coughing. The patient is PERC negative Differential Diagnosis Differential Diagnoses: The differential diagnosis associated with the presentation includes Pleuritic chest pain Bronchitis Pneumonia Muscle strain Obstructive uropathy less likely Lab Data Labs: Lab Results 05/01/25 Range/Units 19:27 COVID-19 (JOHANA) Negative (Negative) COVID-19 Clin Com See Note Influenza Type A (BRENNON) Negative (Negative) Influenza Type B (BRENNON) Negative (Negative) Influenza A & B Note See Note Independent Interpretation I performed an independent interpretation of an: Plain X-Ray Interpretation: No focal infiltrates Radiology Impression Discussion of test interpretation with radiology: I have reviewed the radiologist's reading. Radiologist Impression: Findings: Lungs are clear without acute infiltrates. No pneumothorax. Heart size normal. No acute bony abnormalities. Impression: No acute processes This document has been electronically signed by: Miguel Arango MD on 05/01/2025 20:52:21 Discharge Plan Discharge Clinical Impression: Viral infection Patient Disposition: Home, Self-Care Instructions: Viral Syndrome (ED) Additional Instructions: Your chest x-ray was clear, no evidence of pneumonia or fluid in the lungs. You tested negative for influenza and COVID-19 pain Your pain is still mostly related to a virus but could be related to allergies as well. I recommend taking [id number] allergy medication, ibuprofen and Tylenol for pain. Follow up with your primary doctor, return for new or worsening symptoms Prescriptions: No Action No Known Home Meds Print Language: Peruvian
[2025-05-01 22:22] VITALS: BP 132/76; PULSE 78; RESP 16; TEMP 36.9; O2SAT 98
== END 2025-05-01 22:22 | disposition home or self-care (01) ==
PROVIDERS: Physician Assistant; Emergency Provider Student in an Organized Health Care Education/Training Program
DX: B34.9 Viral infection, unspecified (principal); R05.9 Cough, unspecified; Z11.52 Encounter for screening for COVID-19
CPT/HCPCS: 71046; 87502; 87635; 96372; 99284; 99285; J1885

== ENCOUNTER → 2025-05-01 19:05 | Outpatient (BNV) | payer MEDICAID, SELFPAY | PROVIDERS: Emergency Provider Student in an Organized Health Care Education/Training Program; Visit Provider Radiology Diagnostic Radiology | DX: R05.9 Cough, unspecified (principal); R07.81 Pleurodynia | CPT/HCPCS: 71046 ==

== ENCOUNTER → 2025-05-08 09:00 | Outpatient (REF) | payer MEDICAID, SELFPAY ==
--- NOTE | 2025-05-08 09:03 | CA_ITS ---
Transthoracic Echocardiogram Patient (Last, First, Middle): Sherie Lowe, Gender: F Date of : 1990 Age: 35 Procedure Date: 05/08/2025 Procedure Type: Transthoracic Echocardiogram Location: OP Height: 160.02 cm Weight: 100.7 kg BSA: 2.02 m2 Heart Rate: bpm BP: 108 / 64 mmHg Want Ad Receiver: TO Referring MD: Chava Velásquez MD [facility] Examiner: Bridger Rosen MD Symptoms: R06.02 - Shortness of breath Study Quality: Fair/Contrast ECG Rhythm: Sinus Conclusions: - Essentially normal study Findings Procedure Information Contrast agent, definity, is being given per protocol without apparent complications. Left Ventricle Normal left ventricular size, thickness, and systolic function. The visually estimated ejection fraction is between 60-65%. Spectral Doppler is indicative of a normal filling pattern. Right Ventricle Normal right ventricular cavity size and systolic function. Atria Both atria are normal in size. Interatrial shunt cannot be excluded. Aortic Valve Normal aortic valve structure and function. There is no aortic valve stenosis. There is no aortic valve regurgitation. Mitral Valve Normal mitral valve structure and function. There is trace mitral valve regurgitation. There is no mitral valve stenosis. Pulmonic Valve The pulmonic valve is likely normal. There is trace pulmonic valve regurgitation. Tricuspid Valve Likely normal tricuspid valve structure and function. Tricuspid regurgitation envelope is inadequate for calculation of right ventricular systolic pressure. Normal right atrial pressure. Great Vessels All visible segments of the aorta are normal in size. The pulmonary artery was not well visualized. Venous The inferior vena cava is normal in size and collapses greater than 50% with inspiration. Pericardium/Pleural There is no evidence of pericardial effusion. Prior Study Comparison No prior study available for comparison. Measurements 2D Linear Measurements IVSd: 0.96 0.6-0.9/0.6-1.0 cm LVIDd: 4.29 3.9-5.3/4.2-5.9 cm LVIDd Index: 2.12 2.4-3.2/2.2-3.1 cm/m2 LVIDs: 2.83 2.0-3.6 cm LVPWd: 0.72 0.7-1.1 cm LA Diam: 3.20 2.7-3.8/3.0-4.0 cm LAIDs Index: 1.58 1.5-2.3 cm/m2 LV Mass: 139.62 67-162/88-224 g LV Mass Index: 69.12 43-95/49-115 g/m2 LVOT Diam: 2.00 3.0+(-)1.3 cm 2D Systolic Function EF 4C: 63.70 >55% EF 2C: 64.80 >55% EF BiP: 64.00 >55% Mitral Valve MV Pk E: 0.52 MV PK A: 0.48 MV Decel Time: 170.00 E/A: 1.10 E'Lateral: 13.40 E'Medial: 8.05 E/E' Med: 6.50 E/E' Lat: 3.90 PHT: 50.00 MVA PHT: 4.40 Decel [place]: 3.07 Aortic Valve AoV Pk Jerry: 1.39 AoV Mn Jerry: 0.92 AoV VTI: 0.26 AoV Pk Grad: 8.00 Aov Mn Grad: 4.00 JEREMIAH Cont.VTI: 2.56 LVOT LVOT Pk Jerry: 1.10 LVOT Mn Jerry: 0.78 LVOT VTI: 0.21 LVOT Pk Grad: 5.00 LVOT Mn Grad: 3.00 LVOT Diam: 2.00 LVOT Area: 3.14 Diastolic Function MV Pk E: 0.52 MV Pk A: 0.48 E/A: 1.10 E'Medial: 8.05 E/E' Med: 6.50 E' Laterial: 13.40 E/E' Lat: 3.90 Right Ventricle TAPSE (mm): 24.60 TVS' Jerry: 13.50 Tricuspid Valve RA Press: 3.00 Great Vessels Aorta Sinus of Valsalva: 2.62 2.0-3.5 cm Ao Asc: 2.40 2.1-3.4 cm Updated in Other Vendor System with Status of Final Bridger Rosen MD electronically signed on 05/08/2025 12:31:18 PM with status of Final
--- OUTSIDE RECORDS SUMMARY | 2025-05-08 10:35 | XMS_ITS | Clinical Summary ---
Author Organization [employer] [facility] ity Address [address] [place] [address] Care Team Providers Care Customer Experience Retail Clerk Name Role Phone Luz Maria Walton SLIVER HANDLER Primary Care Provider [phone] Surgical History Surgery Date Site/Laterality Comments SECTION [...] 09/13/2023 Social Influencers of Health Screening 09/13/2023 Depression Screening 08/15/2024 COVID-19 Vaccine ( - 2023-2 5 season) 2025 Influenza Vaccine (#1) 2025 RSV Immunization Adult Patients (1 - 1-dose 75+ series) 2065 HIB Vaccines Aged Out No longer eligi [...] RESULTING AGENCY - 07/18/2018 4:58 PM EST [id number] RESULTS OF GEN-PROBE APTIMA COMBO 2 ASSAY CHLAMYDIA: NEGATIVE N. GONORRHOEAE: NEGATIVE YENI PISANO M.D. , PATHOLOGIST (CASE ELECTRONICALLY SIGNED 07 18 2018) CLINICAL INFORMATION: Z12.4, Z87.898 Z11.3 ENCOUNTER FOR SCREENING FOR INFECTIONS WITH A PREDOMINANTLY SEXUAL MODE OF TRANSMISSION SOURCE: THINPREP PAP FOR CT/GC GROSS DESCRIPTION: THINPREP VIAL RECEIVED. GUSTAVO WEIR Daylin Weir [facility] CYTOLOGY ORDERABLES Final Result HISTORICAL TESTING LAB RESULTING AGENCY from Last 3 Months or Most Recently Relevant to Health Maintenance Care Teams Customer Experience Retail Clerk Relationship Specialty Start Date End Date Luz Maria Walton FNP PCP - General Internal Medicine 02/07/14
== END ==
LOC: HO.CARD 09:00
PROVIDERS: PCP Nurse Practitioner; Visit Provider Internal Medicine
DX: R06.02 Shortness of breath (principal)
CPT/HCPCS: 93306; Q9957

== ENCOUNTER → 2025-05-08 09:03 | Outpatient (BNV) | payer MEDICAID, SELFPAY | PROVIDERS: PCP Nurse Practitioner; Visit Provider Internal Medicine Cardiovascular Disease | DX: R06.02 Shortness of breath (principal) | CPT/HCPCS: 93306 ==

== ENCOUNTER 2025-06-25 14:23 | Outpatient (AMB) | payer MEDICAID, SELFPAY ==
--- NOTE | 2025-06-25 14:26 | MHC.OFFVIS ---
Vital Signs 06/25/25 14:28 Height 5 ft 3 in Weight 223 lb BMI 39.5 BP 112/54 L Blood Pressure Location Lt brachial Pulse 71 Pulse Source Pulse Oximeter Intake Visit Reasons: f/up cta Wheel Alignment Mechanic Required: No Accompanied by: Self / Same As Patient Allergies No Known Allergies (NO KNOWN ALLERGIES) Allergy (Unknown, Verified 06/25/25 14:29) UNKNOWN Medication List - Last Reconciled 06/25/25 by Javier Fontenot NP No Known Home Meds HPI Comments Details: This is a 35-year-old female patient coming in for a follow-up visit. Patient was previously seen in the office for chest pain and palpitations for which patient underwent an echo. Patient was also ordered for a sleep study test which is not completed at this time. Patient had also undergone a Holter study prior to seeing our office that showed sinus tachycardia with no significant arrhythmias. Today, patient is reporting that she has been staying active however has been having hard time losing weight and is working with PCP on this. Patient is otherwise denying any exertional chest pain, shortness of breath, dizziness, orthopnea, PND, leg edema, presyncope or syncope. Patient is reporting left sided pain under the ribcage with sudden movements and patient had a chest x-ray done showing no fractures. No injury or trauma reported. [facility] Family History Family/Other Heart attack Social History Household Members: Other Housing: Other Alcohol intake: never Patient Tobacco Use Status: Never used Tobacco Substance Use Type: Marijuana service: No Current occupational status: unemployed Review of Systems Const Denies daytime sleepiness, Denies difficulty sleeping, Denies snoring, Denies stops breathing during sleep and Denies weakness Card Denies chest pain, Denies rapid heart rate, Denies irregular heart rhythm, Denies claudication, Denies leg edema, Denies lightheadedness, Reports palpitations, Denies dyspnea, Reports dyspnea on exertion, Denies orthopnea, Denies paroxysmal nocturnal dyspnea and Denies slow heart rate Resp Denies cough, Denies dyspnea, Reports dyspnea on exertion and Denies snoring GI Reports no additional complaints, Denies hematochezia, Denies change in stool character and Denies dyspepsia Musc Denies abnormal gait, Denies muscle weakness and Denies numbness Neuro Denies abnormal gait, Denies numbness and Denies weakness Endo Reports palpitations Physical Exam Vital Signs: Last Vital Signs Pulse 71 06/25/25 14:28 BP 112/54 L 06/25/25 14:28 BMI result Body Mass Index 39.5 Const General: cooperative, healthy appearing, comfortable and no acute distress Orientation/consciousness: patient oriented x3 HEENT Head: Yes normal to inspection Neck Neck: Yes normal visual inspection, Yes trachea midline and Yes supple Chest Chest palpation & inspection: normal inspection of the chest Resp Effort & Inspection: normal respiratory effort Auscultation: clear to auscultation bilaterally, no crackles, no rales, no rhonchi and no wheezes Cardio Jugular venous distension: no JVD Palpation: normal PMI Rate: regular rate Rhythm: regular rhythm Heart sounds: S1 normal heart sound present, S2 normal heart sound present, no click, no gallops, no murmurs and no rubs Peripheral pulses: Peripheral pulses 2+ throughout GI Inspection: Yes normal to inspection Palpation (GI): Soft to palpation Auscultation: normal bowel sounds Skin General skin exam: no rashes or lesions noted Neuro General: patient oriented x3 Extrem General: Yes normal to inspection, No no pedal edema and No calf tenderness Psych Appearance: grossly normal Mental Status: mental status grossly normal Speech and movement: Normal speech and movement present Assessment & Plan Assessment & Plan (1) Palpitations: Code(s): R00.2 - Palpitations Category: Medical (2) Obesity: Code(s): E66.9 - Obesity, unspecified Category: Medical Plan 10/09/2024-Holter study showed baseline normal sinus rhythm with frequent sinus tachycardia. Patient does have some anxiety and therefore thinks that her elevated heart rate is due to this. 05/08/2025- echo showed a normal LV systolic function with the ejection fraction between 60-65% with no wall motion abnormalities. Patient's reports of pain under the left rib cage sounding musculoskeletal in nature as this is reproducible with certain movements. No exertional chest pain. Patient missed her sleep study test previously. Recommended completing this and provided her with a centralized scheduling number to call. At this time, no further testing indicated otherwise. Patient's most recent lipid profile from September were elevated. Patient is planning to repeat this with primary care. Ideally, goal should be less than 100. Patient understanding of this. Advised on heart healthy diet, regular exercise, losing weight, adequate hydration, stress mitigation strategies, and management of vascular risk factors. Follow up on an as-needed basis. In the interim, patient will call the office with any concerns or change in symptoms. This note was generated using voice recognition software. While every effort has been made to ensure accuracy and proper certified dental assistant, there may be occasional errors that could affect the content or meaning of the described symptoms. Coding Level of Care Code Est Pt Level 3 (35023) Diagnoses Palpitations R00.2 Obesity E66.9 Time Spent (min) 29 Comment Time spent in reviewing the chart, test results, assessment, counseling and documentation.
[2025-06-25 14:28] VITALS: BP 112/54; PULSE 71; BMI 39.5
--- OUTSIDE RECORDS SUMMARY | 2025-06-25 16:05 | XMS_ITS | Clinical Summary ---
Author Organization [employer] [facility] ity Address [address] [place] [address] Care Team Providers Care Quality Facilitator Name Role Phone Luz Maria Walton OFFSET PLATE MAKER Primary Care Provider [phone] Surgical History Surgery Date Site/Laterality Comments SECTION [...] Years) (1 of 2 - PCV) 2009 HPV Vaccines (1 - 3-dose SCD M series) 2017 Cervical Cancer Screening: P ap Smear 07/14/2021 07/14/2018, 07/14/2018 HIV Screening 09/13/2023 Hepatitis C Screening 09/13/2023 Social Influencers of Health Screening 09/13/2023 Depression Screening 08/15/2024 COVID-19 Vaccine (1 - 2024-2 6 season) 2025 Influenza Vaccine (#1) 2025 RSV [...] RESULTING AGENCY - 07/18/2018 4:58 PM EST [id number] RESULTS OF GEN-PROBE APTIMA COMBO 2 ASSAY CHLAMYDIA: NEGATIVE N. GONORRHOEAE: NEGATIVE YENI PISANO M.D. , PATHOLOGIST (CASE ELECTRONICALLY SIGNED 07 18 2018) CLINICAL INFORMATION: Z12.4, Z87.898 Z11.3 ENCOUNTER FOR SCREENING FOR INFECTIONS WITH A PREDOMINANTLY SEXUAL MODE OF TRANSMISSION SOURCE: THINPREP PAP FOR CT/GC GROSS DESCRIPTION: THINPREP VIAL RECEIVED. GUSTAVO WEIR Daylin Weir [facility] CYTOLOGY ORDERABLES Final Result HISTORICAL TESTING LAB RESULTING AGENCY from Last 3 Months or Most Recently Relevant to Health Maintenance Care Teams Quality Facilitator Relationship Specialty Start Date End Date Luz Maria Walton FNP PCP - General Internal Medicine 02/07/14
== END 2025-06-25 15:13 | disposition home or self-care (01) ==
LOC: HO.HCS 14:23
PROVIDERS: PCP Nurse Practitioner
DX: R00.2 Palpitations (principal); E66.9 Obesity, unspecified
CPT/HCPCS: 99213

== ENCOUNTER → 2025-06-25 14:23 | Outpatient (BNVA) | payer MEDICAID, SELFPAY | PROVIDERS: PCP Nurse Practitioner | DX: R00.2 Palpitations (principal); E66.9 Obesity, unspecified | CPT/HCPCS: 99212 ==

== ENCOUNTER → 2025-07-31 14:14 | Outpatient (REF) | payer MEDICAID, SELFPAY ==
--- OUTSIDE RECORDS SUMMARY | 2025-07-31 19:02 | XMS_ITS | Clinical Summary ---
Author Organization [employer] [facility] it Address [address] [place] [address] Care Team Providers Care Gravity Prospecting Operator Helper Name Role Phone Luz Maria Walton FISHER MUSSEL Primary Care Provider [phone] Surgical History Surgery Date Site/Laterality Comments SECTION [...] on file Sexual Orientation Not on file Plan of Treatment Health Maintenance Due Date [...] Screening 09/13/2023 Depression Screening 08/15/2024 COVID-19 Vaccine (2024-2 6 season) 2025 Influenza Vaccine (#1) 2025 [...] RESULTING AGENCY - 07/18/2018 4:58 PM EST [id number] RESULTS OF GEN-PROBE APTIMA COMBO 2 ASSAY [...] Recently Relevant to Health Maintenance Care Teams Gravity Prospecting Operator Helper Relationship Specialty Start Date End Date Luz Maria Walton FNP PCP - General Internal Medicine 02/07/14
== END ==
LOC: HO.SL 14:14
PROVIDERS: PCP Nurse Practitioner; Visit Provider Internal Medicine
DX: G47.33 Obstructive sleep apnea (adult) (pediatric) (principal); R06.02 Shortness of breath
CPT/HCPCS: 95806

== ENCOUNTER → 2025-08-07 14:22 | Outpatient (BNV) | payer MEDICAID, SELFPAY | PROVIDERS: PCP Nurse Practitioner; Visit Provider Internal Medicine | DX: R06.83 Snoring (principal) | CPT/HCPCS: 95806 ==